=== PATIENT | male | born 1980 ===

== ENCOUNTER 2020-04-22 16:27 | Outpatient (REF) | payer OTHER, SELFPAY | END 2020-04-22 16:28 | disposition home or self-care (01) | LOC: HO.LAB 16:27 | PROVIDERS: PCP Internal Medicine; Visit Provider Internal Medicine | DX: Z20.828 Contact with and (suspected) exposure to other viral communicable diseases (principal) | CPT/HCPCS: 87635 ==

== ENCOUNTER 2020-06-02 16:39 | Outpatient (REF) | payer OTHER, SELFPAY | END 2020-06-02 16:40 | disposition home or self-care (01) | LOC: HO.LAB 16:39 | PROVIDERS: PCP Internal Medicine; Visit Provider Internal Medicine | DX: Z20.828 Contact with and (suspected) exposure to other viral communicable diseases (principal) | CPT/HCPCS: C9803; U0003 ==

== ENCOUNTER 2021-03-23 08:54 | Outpatient (AMB) | payer OTHER, SELFPAY ==
[2021-03-23 08:55] VITALS: BP 130/88; PULSE 70; TEMP 36.6; O2SAT 98; BMI 33.8
--- NOTE | 2021-03-23 08:55 | A.OFFPC_ITS ---
Vital Signs 03/23/21 08:55 Height 5 ft 7 in Weight 216 lb BMI 33.8 BP 130/88 Pulse 70 Pulse Source Pulse Oximeter Temp 97.9 F Pulse Oximetry (%) 98 Oxygen Delivery Method Room Air HPI PE HPI Details Patient comes in today for his annual physical examination States that he feels okay Denies any headaches or dizziness Denies any chest pains, no SOB No nausea/vomiting, no abdominal pain No change in bowel habits noted Denies any acute urinary symptoms PFSH Medical History Benign essential hypertension Pure hypercholesterolemia Vitamin D deficiency Obesity (BMI 30-39.9) Surgical History No history of previous surgery Family History Mother Diabetes Father High blood pressure Social History Housing: Apartment Alcohol intake: unknown Patient Tobacco Use Status: Never used Tobacco e-Cigarette/Vaping Use: Never Used Second Hand Smoke Exposure: Yes service: No Current occupational status: unemployed Cognitive needs: No Hearing needs: No Vision needs: No Questionnaire PHQ-9 Over the last 2 weeks, how often have you been bothered by any of the following problems? 1. Little interest or pleasure in doing things: not at all 2. Feeling down, depressed, or hopeless: not at all 3. Trouble falling or staying asleep, or sleeping too much: not at all 4. Feeling tired or having little energy: not at all 5. Poor appetite or overeating: not at all 6. Feeling bad about yourself - or that you are a failure or have let yourself or your family down: not at all 7. Trouble concentrating on things, such as reading the newspaper or watching television: not at all 8. Moving or speaking so slowly that other people could have noticed. Or the opposite - being so fidgety or restless that you have been moving around a lot more than usual: not at all 9. Thoughts that you would be better off or of hurting yourself in some way: not at all Total score: 0 Depression Screening Interpretation: Negative 09026 - PHQ-9 Billing: Yes Source: Developed by Drs. Pablo Gomez, Ronda Morales, Wyatt Robledo and colleagues, with an educational christopher from [employer]. Thrive Questionnaire Date Thrive assessed: 03/23/21 I am a: Patient What is your living situation today?: I have a steady place to live Within the past 12 months, did the food you bought not last and you didn't have the money to get more?: Never true Within the past 12 months, did you worry whether your food would run out before you got money to buy more?: Never true Do you have trouble paying for medicines?: No Do you have trouble getting transportation to medical appointments?: No Do you have trouble paying your heating and electricity bill?: No Do you have trouble taking care of your child, family member or friend?: No Do you have trouble with day-to-day activities such as bathing, preparing meals, shopping, managing finances, etc.?: No Are you currently unemployed and looking for a job?: No Are you interested in more education?: No Currently or been in a relationship where the following occur: no concerns reported AUDIT C Alcohol Use Questionnaire (AUDIT-C) 1. How often do you have a drink containing alcohol?: Monthly or less 2. How many drinks containing alcohol do you have on a typical day when you are drinking?: 1 or 2 3. How often do you have six or more drinks on one occasion?: Never Total Score: 1 Score Reviewed/Action Taken: Yes GENE-7 AMB Questionnaire GENE-7 Date GENE - 7 assessed: 03/23/21 Feeling nervous, anxious, or on edge: 1 = Several days Not being able to stop or control worryin = Several days Worrying too much about different things: 1 = Several days Trouble relaxin = Several days Being so restless that it is hard to sit still: 1 = Several days Becoming easily annoyed or irritable: 1 = Several days Feeling afraid as if something awful might happen: 1 = Several days Total GENE-7 score (0-4 normal; 5-9 mild; 10-14 moderate; 15-21 severe): 7 Source: Developed by Ronda Carey Kurt Kroenke and colleagues, with an educational christopher from [employer]. Review of Systems Const Denies anorexia, Denies body aches, Denies chills, Denies fatigue, Denies fever(s), Denies headache(s), Denies malaise and Denies weakness Eyes Denies blurry vision, Denies change in vision, Denies irritation, Denies itchy eyes and Denies other visual disturbances ENT Reports Normal hearing present, Denies dysphagia, Denies dizziness, Denies ear discharge, Denies otalgia, Denies headache(s), Denies nasal congestion, Denies neck mass, Denies neck pain, Denies odynophagia, Denies sinus pain, Denies sinus pressure and Denies sore throat Card Denies chest pain at rest, Denies chest pain with activity, Denies rapid heart rate, Denies irregular heart rhythm, Denies palpitations, Denies dyspnea and Denies dyspnea on exertion Resp Denies chest congestion, Denies cough, Denies dyspnea, Denies dyspnea on exertion and Denies wheezing GI Denies abdominal pain, Denies bloating, Denies change in bowel habits, Denies constipation, Denies dysphagia, Denies heartburn, Denies diarrhea, Denies nausea, Denies odynophagia and Denies vomiting Denies hematuria, Denies difficulty urinating, Denies genital pain, Denies dy suria, Denies penile discharge, Denies scrotal swelling, Denies testicular mass, Denies testicular pain, Denies urinary frequency, Denies urinary incontinence and Denies urinary urgency Musc Denies back pain, Denies arthralgias, Denies joint swelling, Denies muscle weakness and Denies neck pain Skin/Breast Denies change in pigmentation, Denies lesions, Denies rash and Denies unusual bruising Neuro Reports Normal hearing present, Denies dizziness, Denies headache(s), Denies paresthesias and Denies weakness Endo Denies fatigue and Denies palpitations Aller/Immun Denies itchy eyes and Denies wheezing Physical exam (Primary Care) Vital Signs: Last Vital Signs Temp 97.9 F 03/23/21 08:55 Pulse 70 03/23/21 08:55 BP 130/88 03/23/21 08:55 Pulse Ox 98 03/23/21 08:55 Oxygen Delivery Method Room Air 03/23/21 08:55 BMI result Body Mass Index 33.8 Tobacco/Smoking Status: Tobacco use Status Tobacco use date assessed 03/23/21 03/23/21 09:04 Patient Tobacco Use Status Never used Tobacco 03/23/21 09:04 PHQ-9: Total score: 0 Depression Screening Interpretation: Negative Const General: no acute distress, alert and awake Orientation/consciousness: patient oriented x3 HENMT Head: Yes normal to inspection, Yes normocephalic and Yes atraumatic Ears: external ears normal, TM's normal bilaterally and EAC's normal General nose exam: Normal external nose present, No nasal polyps present and No nasal discharge present Face and sinus: Yes normal facial exam and Yes sinuses nontender Mouth: Normal oral and palatal mucosa present, tongue normal and oropharynx normal Teeth and gingiva: dentition normal Throat: Yes posterior oropharynx normal and Yes tonsils normal Eyes Eyelids: Yes eyelids normal Conjunctivae: conjunctivae normal Sclerae: sclerae normal Pupils: Equal, round and reactive pupils present EOM: EOMs intact bilaterally Neck Neck: Yes no lymphadenopathy and Yes supple Thyroid: Thyroid normal and no masses Lymphatic: no lymphadenopathy noted Resp Auscultation: clear to auscultation bilaterally, no crackles, no rales and no wheezes Cardio Rate: regular rate Rhythm: regular rhythm Heart sounds: no murmurs GI Palpation (GI): Soft to palpation, nontender, no guarding and No hepatosplenomegaly present Auscultation: normal bowel sounds General: Yes no CVA tenderness Male General Exam: Yes normal external exam Scrotum: testes descended bilaterally, no inguinal hernias, no masses and no scrotal swelling Back/Spine/Pelvis Back: no CVA tenderness Skin Lesions: no lesions Rashes: no rashes Neuro General: patient oriented x3, moves all extremities, no focal motor deficits and CN's II-XI intact bilaterally Cranial nerves: Yes Equal, round and reactive pupils present and Yes Normal hearing present Extrem General: Yes no clubbing, cyanosis or edema Psych Appearance: grossly normal Mental Status: mental status grossly normal Assessment and Plan Assessment & Plan (1) Annual physical exam: Code(s): Z00.00 - Encounter for general adult medical examination without abnormal findings Plan: Check labs (2) Elevated blood pressure reading: Code(s): R03.0 - Elevated blood-pressure reading, without diagnosis of hypertension Plan: Reinforced low sodium diet - goal is systolic BP of at least 120 mm or less Instructed to continue monitoring his BP regularly (3) Pure hypercholesterolemia: Code(s): E78.00 - Pure hypercholesterolemia, unspecified Plan: Reinforced low cholesterol diet Will recheck fasting lipids (4) Vitamin D deficiency: Code(s): E55.9 - Vitamin D deficiency, unspecified Plan: Will recheck Vitamin D level for follow up (5) Obesity (BMI 30-39.9): Code(s): E66.9 - Obesity, unspecified Plan: Reinforced diet/exercise as tolerated/lose weight Plan Follow up in 4 months Orders: Orders Comprehensive [place]. Panel Fast 03/23/21 E78.00 - Pure hypercholesterolemia, uns pecified, Z00.00 - Encounter for general adult medical examination without abnormal findings, R03.0 - Elevated blood-pressure reading, without diagnosis of hypertension Lipid Panel 03/23/21 E78.00 - Pure hypercholesterolemia, unspecified, Z00.00 - Encounter for general adult medical examination without abnormal findings, R03.0 - Elevated blood-pressure reading, without diagnosis of hypertension Vitamin D 25-OH Total 03/23/21 E55.9 - Vitamin D deficiency, unspecified, Z00.00 - Encounter for general adult medical examination without abnormal findings Complete Blood Count Auto Diff 03/23/21 Z00.00 - Encounter for general adult medical examination without abnormal findings, R03.0 - Elevated blood-pressure reading, without diagnosis of hypertension TSH reflex Free T4 03/23/21 E78.00 - Pure hypercholesterolemia, unspecified, Z00.00 - Encounter for general adult medical examination without abnormal findings, R03.0 - Elevated blood-pressure reading, without diagnosis of hypertension, E66.9 - Obesity, unspecified UA CC w/rflx Micro + Cult 03/23/21 Z00.00 - Encounter for general adult medical examination without abnormal findings, R03.0 - Elevated blood-pressure reading, without diagnosis of hypertension Coding Level of Care Code Est Pt Prev Care 40-64y(86157) Diagnoses Annual physical exam Z00.00 Elevated blood pressure reading R03.0 Pure hypercholesterolemia E78.00 Vitamin D deficiency E55.9 Obesity (BMI 30-39.9) E66.9 Additional Codes PHQ-9 - 15800 - PHQ-9 Billing: Yes ([id number])
== END 2021-03-23 09:38 | disposition home or self-care (01) ==
LOC: HO.HMGH 08:54
PROVIDERS: PCP Internal Medicine; Visit Provider Internal Medicine
DX: Z00.00 Encounter for general adult medical examination without abnormal findings (principal); R03.0 Elevated blood-pressure reading, without diagnosis of hypertension; E78.00 Pure hypercholesterolemia, unspecified; E55.9 Vitamin D deficiency, unspecified; E66.9 Obesity, unspecified
CPT/HCPCS: 99396

== ENCOUNTER 2021-09-08 07:49 | Outpatient (REF) | payer OTHER, SELFPAY ==
--- NOTE | ~2021-09-08 | CT_ITS ---
EXAMINATION: CT ABDOMEN AND PELVIS WITH CONTRAST CLINICAL INFORMATION: Hernia without obstruction COMPARISON: None TECHNIQUE: Multidetector volumetric images were obtained from the superior aspect of the liver through the pubic symphysis following administration 85 mL of Omnipaque 350 intravenous contrast. Sagittal and coronal reformatted images were obtained on the technologist's workstation. Oral contrast: Yes This CT examination was performed using dose optimization techniques as appropriate, variously including the following: *Automated exposure control *Adjustment of mA and/or kV according to patient size (this includes techniques or standardized protocols for targeted exams where dose is matched to indication/reason for exam; i.e. extremities or head) *Use of iterative reconstruction technique DLP: 579 mGy-cm FINDINGS: LUNG BASES: The visualized lung bases are unremarkable. LIVER, GALLBLADDER, AND BILIARY TREE: The liver is normal in size, shape, and attenuation. No focal hepatic lesion or biliary ductal dilatation is present. The gallbladder is unremarkable with no evidence of radiopaque gallstones, gallbladder wall thickening, or obvious pericholecystic inflammatory changes. PANCREAS: Unremarkable. SPLEEN: Unremarkable. ADRENAL GLANDS: Unremarkable. KIDNEYS AND URETERS: The kidneys are normal in size, shape, and attenuation. No hydronephrosis, hydroureter, or calculi seen. No perinephric stranding. BLADDER: Unremarkable. GASTROINTESTINAL TRACT: The small and large bowel are unremarkable. The appendix is unremarkable. ABDOMINAL WALL: There is a small umbilical hernia containing fat. There may be a small left inguinal hernia containing fat. LYMPH NODES: Normal. VASCULAR: Unremarkable. PELVIC VISCERA: Unremarkable. OSSEOUS STRUCTURES: Unremarkable. CT/CT abdomen pelvis w con IMPRESSION: Small umbilical hernia containing fat and question small left inguinal hernia containing fat. Fleischner guidelines were followed.
[2021-09-08] MEDS: iohexoL 350 MG/ML 100 ML INFUS..BTL IV (11:03)
[2021-09-08] MEDS: Barium Sulfate Oral (Vanilla) 450 ML ORAL.SUSP 900 ML PO (11:03)
== END 2021-09-08 07:50 | disposition home or self-care (01) ==
LOC: HO.CT 07:49
PROVIDERS: PCP Internal Medicine; Visit Provider Nurse Practitioner Acute Care
DX: K46.9 Unspecified abdominal hernia without obstruction or gangrene (principal)
CPT/HCPCS: 74177; Q9967

== ENCOUNTER → 2021-10-02 09:32 | Outpatient (BNVA) | payer OTHER, SELFPAY | PROVIDERS: PCP Internal Medicine; Referring Provider Nurse Practitioner Acute Care; Visit Provider Surgery | DX: M62.08 Separation of muscle (nontraumatic), other site (principal); K42.9 Umbilical hernia without obstruction or gangrene | CPT/HCPCS: 99202 ==

== ENCOUNTER 2022-03-26 11:46 | Outpatient (REF) | payer OTHER, SELFPAY ==
[2022-03-26 12:05] LABS: MANUAL DIFF FLAG NO
[2022-03-26 13:15] LABS: Alanine Aminotransferase 18 U/L (0-40); Albumin Level 4.3 g/dL (3.5-5.0); Alkaline Phosphatase 78 U/L (39-117); Anion Gap 13 (12-20); Aspartate Amino Transferase 18 U/L (5-37); Blood Urea Nitrogen 9 mg/dL (9-16); Calcium 9.4 mg/dL (8.4-10.2); Carbon Dioxide 29 mmol/L (22-29); Chloride 103 mmol/L (96-108); Cholesterol 212 mg/dL; Estimated Glomerular Filt Rate > 60; Glucose Fasting 86 mg/dL (60-99); HDL Cholesterol 36 mg/dL; LDL Cholesterol Calculated 154 mg/dl; Potassium 4.5 mmol/L (3.3-5.1); Sodium 140 mmol/L (135-145); Total Protein 7.2 g/dL (6.5-8.0); Triglycerides 110 mg/dL
[2022-03-26 13:17] LABS: Basophils Percent Auto 0.3 % (0-2); Eosinophils Absolute Auto 0.1 X10*3/uL (0.0-0.4); Eosinophils Percent Auto 1.2 % (0-4); Hematocrit 43.5 % (42.0-52.0); Hemoglobin 15.2 g/dl (14.0-18.0); Imm Gran Abs Auto 0.03 X10*3/uL (0.00-0.03); Imm Gran Pct Auto 0.5 % (0.0-0.4); Lymphocytes Absolute Auto 1.5 X10*3/uL (1.2-4.9); Lymphocytes Percent Auto 22.7 % (20-40); Mean Corpuscular HGB Conc 34.9 g/dl (31.0-36.0); Mean Corpuscular Hemoglobin 30.6 pg (27.0-33.0); Mean Corpuscular Volume 87.7 fL (80.0-98.0); Mean Platelet Volume 11.5 fL (9.4-12.4); Monocytes Absolute Auto 0.6 X10*3/uL (0.1-1.2); Monocytes Percent Auto 8.9 % (2-11); Neutrophils Absolute Auto 4.4 x10*3/uL (2.0-8.3); Neutrophils Percent Auto 66.4 % (45-73); Platelet Count 226 X10*3/uL (160-400); Red Blood Count 4.96 X10*6/uL (4.60-5.80); Red Cell Distribution Width 12.7 % (11.0-16.0); White Blood Count 6.7 X10*3/uL (4.8-10.8)
[2022-03-26 13:35] LABS: Prostate Specific Antigen 1.41 ng/mL (<0.05-4.0); TSH reflex Free T4 1.46 uIU/mL (0.32-4.0); Vitamin D 25-OH Total 12.8 ng/mL (>30)
[2022-03-26 13:59] LABS: Appearance Urine Clear; Color Urine Yellow; Glucose Urine UA Negative (Negative); Leukocyte Esterase Urine Negative (Negative); Nitrite Urine Negative (Negative); Urine Blood Negative (Negative); Urine Ketones Negative (Negative); Urine Protein Negative (Neg-Trace)
== END 2022-03-26 11:47 | disposition home or self-care (01) ==
LOC: HO.LAB 11:46
PROVIDERS: PCP Internal Medicine; Visit Provider Internal Medicine
DX: Z00.00 Encounter for general adult medical examination without abnormal findings (principal); Z12.5 Encounter for screening for malignant neoplasm of prostate; R35.0 Frequency of micturition; E55.9 Vitamin D deficiency, unspecified; E78.00 Pure hypercholesterolemia, unspecified; I10 Essential (primary) hypertension
CPT/HCPCS: 36415; 80053; 80061; 81003; 82306; 84153; 84443; 85025

== ENCOUNTER 2022-09-29 07:25 | Outpatient (REF) | payer OTHER, SELFPAY ==
[2022-09-29 07:41] LABS: MANUAL DIFF FLAG NO
[2022-09-29 08:38] LABS: Basophils Percent Auto 0.5 % (0-2); Eosinophils Absolute Auto 0.1 X10*3/uL (0.0-0.4); Eosinophils Percent Auto 2.1 % (0-4); Hematocrit 44.2 % (42.0-52.0); Hemoglobin 15.3 g/dl (14.0-18.0); Imm Gran Abs Auto 0.03 X10*3/uL (0.00-0.03); Imm Gran Pct Auto 0.5 % (0.0-0.4); Lymphocytes Absolute Auto 1.7 X10*3/uL (1.2-4.9); Lymphocytes Percent Auto 25.4 % (20-40); Mean Corpuscular HGB Conc 34.6 g/dl (31.0-36.0); Mean Corpuscular Hemoglobin 30.1 pg (27.0-33.0); Mean Platelet Volume 11.4 fL (9.4-12.4); Monocytes Absolute Auto 0.6 X10*3/uL (0.1-1.2); Neutrophils Absolute Auto 4.2 x10*3/uL (2.0-8.3); Neutrophils Percent Auto 62.5 % (45-73); Platelet Count 230 X10*3/uL (160-400); Red Blood Count 5.08 X10*6/uL (4.60-5.80); Red Cell Distribution Width 12.7 % (11.0-16.0); White Blood Count 6.7 X10*3/uL (4.8-10.8)
[2022-09-29 09:25] LABS: Alanine Aminotransferase 14 U/L (0-40); Albumin Level 4.3 g/dL (3.5-5.0); Alkaline Phosphatase 78 U/L (39-117); Anion Gap 13 (12-20); Aspartate Amino Transferase 19 U/L (5-37); Bilirubin Total 1.7 mg/dL (0.0-1.0); Blood Urea Nitrogen 11 mg/dL (9-16); Calcium 9.6 mg/dL (8.4-10.2); Carbon Dioxide 30 mmol/L (22-29); Chloride 106 mmol/L (96-108); Cholesterol 217 mg/dL; Estimated Glomerular Filt Rate > 60; Glucose Fasting 89 mg/dL (60-99); HDL Cholesterol 40 mg/dL; LDL Cholesterol Calculated 159 mg/dl; Potassium 4.8 mmol/L (3.3-5.1); Sodium 144 mmol/L (135-145); Triglycerides 91 mg/dL
[2022-09-29 09:41] LABS: TSH reflex Free T4 1.36 uIU/mL (0.32-4.0); Vitamin D 25-OH Total 11.5 ng/mL (>30)
[2022-09-29 09:51] LABS: Appearance Urine Clear; Color Urine Yellow; Glucose Urine UA Negative (Negative); Leukocyte Esterase Urine Negative (Negative); Nitrite Urine Negative (Negative); Specific Gravity - Urine 1.015 (1.005-1.025); Urine Blood Negative (Negative); Urine Ketones Negative (Negative); Urine Protein Negative (Neg-Trace)
== END 2022-09-29 07:26 | disposition home or self-care (01) ==
LOC: HO.LAB 07:25
PROVIDERS: PCP Internal Medicine; Visit Provider Internal Medicine
DX: R30.0 Dysuria (principal); E55.9 Vitamin D deficiency, unspecified; E78.00 Pure hypercholesterolemia, unspecified; I10 Essential (primary) hypertension
CPT/HCPCS: 36415; 80053; 80061; 81003; 82306; 84443; 85025

== ENCOUNTER 2022-11-17 23:59 | Emergency (ER) | payer OTHER, SELFPAY ==
--- NOTE | ~2022-11-17 | XR_ITS ---
EXAMINATION: XR FINGER, RIGHT CLINICAL INFORMATION: Right index finger pain and injury COMPARISON: None available. TECHNIQUE: 3 views of the right index finger. FINDINGS: The bones and soft tissues are normal. No fracture. Alignment is anatomic. Joint spaces are maintained. XR/XR finger RT min 2V IMPRESSION: Normal finger radiographs.
[2022-11-18 00:06] VITALS: BP 189/112; PULSE 67; RESP 17; TEMP 36.8; O2SAT 96; BMI 31.3
--- NOTE | 2022-11-18 02:00 | ED.EXTPRO ---
HPI - Extremity Problem General Chief complaint: Extremity Injury, Upper Stated complaint: finger inj Time Seen by Provider: 11/18/22 00:24 Source: patient Mode of arrival: ambulatory Limitations: no limitations History of Present Illness HPI Narrative: 42-year-old male [id number] came in with swelling and pain to all the tip of the right index, no known trauma or injury to the finger. Patient has no fever or chills. Related Data Previous Rx's Medication Instructions Recorded lisinopril 5 mg tablet 5 mg PO DAILY 90 days #90 tabs 09/23/22 atorvastatin 10 mg tablet 10 mg PO BEDTIME 30 days #30 tabs 09/29/22 cholecalciferol (vitamin D3) 50 50 mcg PO DAILY 90 days #90 caps 09/29/22 mcg (2,000 unit) capsule blood pressure monitor (Blood #1 ea 10/06/22 Pressure Kit) doxycycline hyclate 100 mg tablet 100 mg PO BID #20 tabs 11/18/22 Allergies Allergy/AdvReac Type Severity Reaction Status Date / Time No Known Allergies Allergy Verified 11/18/22 00:08 [No Known Allergies*] Review of Systems Review of Systems: All other systems are reviewed and are negative Constitutional: Reports as per HPI and Reports no additional constitutional complaints Eyes: Reports as per HPI and Reports no additional eye complaints Reports system reviewed and no additional complaints, except as documented Cardiovascular: Reports as per HPI and Reports no additional cardiovascular complaints Respiratory: Reports as per HPI and Reports no additional respiratory complaints Gastrointestinal: Reports as per HPI and Reports no additional gastrointestinal complaints Genitourinary: Reports no additional female genitourinary complaints Musculoskeletal: Reports no additional musculoskeletal complaints Skin/Breast: Reports system reviewed and no additional complaints, except as docu Psychiatric: Reports no additional psychiatric complaints Endocrine: Reports no additional endocrine complaints Hematologic/Lymphatic: Reports no additional hematologic/lymphatic complaints Allergic/Immunologic: Reports no additional allergic/immunologic complaints Reports system reviewed and no additional complaints, except as documented and Reports Abnormal speech present [facility] Past Medical History Medical History Benign essential hypertension Obesity (BMI 30-39.9) Pure hypercholesterolemia Vitamin D deficiency Surgical History No history of previous surgery Family History Family History Mother Diabetes Father High blood pressure Social History Social History Housing: Apartment Alcohol intake: current Alcohol intake frequency: holidays/special occasions only Patient Tobacco Use Status: Never used Tobacco e-Cigarette/Vaping Use: Never Used Second Hand Smoke Exposure: Yes Advance Directives: No Advance Directives Information Provided: Yes service: No Current occupational status: unemployed Cognitive needs: No Hearing needs: No Vision needs: No Physical Exam Vital Signs: Vital Signs: Last Vital Signs Temp 98.2 F 11/18/22 00:06 Pulse 67 11/18/22 00:06 Resp 17 11/18/22 00:06 BP 189/112 H 11/18/22 00:06 Pulse Ox 96 11/18/22 00:06 O2 Del Method Room Air 11/18/22 00:06 BMI result Body Mass Index 31.3 Vital signs have been reviewed as appeared to be correct. Blood pressure elevated. Heart rate normal. Respiration rate normal. Temperature normal. Oxygen saturation normal. Appearance: Alert. Oriented X3. No acute distress. Head: Normal external exam. Normocephalic. Atraumatic. No Borden signs noted. No raccoon eyes noted Eyes: PERRLA. EOMI. Conjunctiva and sclera normal. Eyelids normal. ENT: TM's Normal. Pharynx normal. Uvula midline. Moist mucous membranes. No trismus noted. No drooling noted. No muffled voice noted. Neck: Normal inspection. Neck supple. FROM. No adenopathy. Thyroid Normal. No meningeal signs. No neck mass noted. CVS: Normal heart rate and rhythm. Heart sound normal. No murmurs noted. Pulses normal throughout. Respiratory: No respiratory distress. Painless inspiration. Breath sounds normal. No wheezes/rales/rhonchi noted. Chest nontender. No accessory muscle usage noted or decreased air movement noted. Abdomen: Soft and nontender. Bowel sounds normal in all 4 quadrants. No distention noted. No organomegaly noted. No visible injury noted. Back: No CVA tenderness. Full range of motion noted. Skin: Skin warm and dry. Normal skin color. Normal skin turgor. No rashes/lesions/lacerations noted. Extremities: Right index finger diffuse redness to the distal right index with paronychia and swelling at the nail bed of the right index finger, extending the redness to the palmar surface but no discrete fluctuation. Neuro: Oriented X 3. Cranial nerve exam: II-XII are grossly intact No motor deficit. No sensory deficit. Reflexes normal. Course Course Course Narrative: Right index paronychia will start the patient on doxycycline and finger soaking and return in 2 days for recheck. Medical Decision Making Differential Diagnosis Differential Diagnoses: The differential diagnosis associated with the presentation includes (Right index paronychia, felon, osteomyelitis, injury and fracture.) Discharge Plan Discharge Clinical Impression: Paronychia of right index finger Patient Disposition: Home, Self-Care Instructions: Paronychia (ED) Additional Instructions: Come back in 2 days for finger check, continue with his finger soaking in warm water, take the antibiotic as prescribed. Prescriptions: New doxycycline hyclate 100 mg tablet 100 mg PO BID Qty: 20 0RF No Action lisinopril 5 mg tablet 5 mg PO DAILY 90 Days Qty: 90 1RF (DME) blood pressure monitor [Blood Pressure Kit] Kit See Rx Instructions .Route Qty: 1 0RF Rx Instructions: As directed atorvastatin 10 mg tablet 10 mg PO BEDTIME 30 Days Qty: 30 3RF cholecalciferol (vitamin D3) 50 mcg (2,000 unit) capsule 50 mcg PO DAILY 90 Days Qty: 90 3RF Referrals: Physician,Unknown J [Primary Care Provider] - Stand Alone Forms: Work/School Release
[2022-11-18] MEDS: Doxycycline Monohydrate 100 MG CAPSULE PO (02:56)
[2022-11-18] MEDS: Lidocaine HCl 1 % MPF 5 ML VIAL SUBCUT (02:56)
== END 2022-11-18 03:25 | disposition home or self-care (01) ==
PROVIDERS: Emergency Provider Emergency Medicine
DX: L03.011 Cellulitis of right finger (principal); M79.644 Pain in right finger(s); Z79.899 Other long term (current) drug therapy
CPT/HCPCS: 73140; 99283

== ENCOUNTER 2022-11-19 08:32 | Emergency (ER) | payer OTHER, SELFPAY ==
[2022-11-19 08:41] VITALS: BP 160/98; PULSE 60; RESP 16; TEMP 36.7; O2SAT 96; BMI 31.3
--- NOTE | 2022-11-19 08:48 | ED.WOUNDLAC ---
HPI - Wound/Laceration General Chief Complaint: Extremity Problem Stated Complaint: finger infection follow up? Time Seen by Provider: 11/19/22 08:46 Source: patient Mode of arrival: ambulatory Limitations: no limitations History of Present Illness HPI narrative: 42-year-old male seen here 2 days ago for a paronychia of the right index finger presents back to the ER for re-evaluation of the infection. He was sent home with doxycycline and has been using warm soaks. He states the pain is improved. It is still red but no longer draining. He states there is pressure when he flexes the DIP. No fever or chills. Onset (ago): day(s) Extremity Location: right: hand (index finger) Place: home Patient tetanus UTD: Yes Context: accidental Treatments prior to arrival: other (abx, warm soaks) Related Data Previous Rx's Medication Instructions Recorded lisinopril 5 mg tablet 5 mg PO DAILY 90 days #90 tabs 09/23/22 atorvastatin 10 mg tablet 10 mg PO BEDTIME 30 days #30 tabs 09/29/22 cholecalciferol (vitamin D3) 50 50 mcg PO DAILY 90 days #90 caps 09/29/22 mcg (2,000 unit) capsule blood pressure monitor (Blood #1 ea 10/06/22 Pressure Kit) doxycycline hyclate 100 mg tablet 100 mg PO BID #20 tabs 11/18/22 cephalexin 500 mg capsule 500 mg PO Q6H 7 days #28 caps 11/19/22 Allergies Allergy/AdvReac Type Severity Reaction Status Date / Time No Known Allergies Allergy Verified 11/18/22 00:08 [No Known Allergies*] Review of Systems Review of Systems: Yes all other systems are reviewed and are negative PMFSH Past Medical History Medical History Benign essential hypertension Obesity (BMI 30-39.9) Pure hypercholesterolemia Vitamin D deficiency Surgical History No history of previous surgery Family History Family History Mother Diabetes Father High blood pressure Social History Social History Housing: Apartment Alcohol intake: unknown Patient Tobacco Use Status: Never used Tobacco e-Cigarette/Vaping Use: Never Used Second Hand Smoke Exposure: Yes Advance Directives: No service: No Current occupational status: unemployed Cognitive needs: No Hearing needs: No Vision needs: No Physical Exam Vital Signs: Vital Signs: Last Vital Signs Temp 98.1 F 11/19/22 08:41 Pulse 60 11/19/22 08:41 Resp 16 11/19/22 08:41 BP 160/98 H 11/19/22 08:41 Pulse Ox 96 11/19/22 08:41 O2 Del Method Room Air 11/19/22 08:41 BMI result Body Mass Index 31.3 Appearance: Alert. Oriented X3. No acute distress. HEENT: normal inspection CVS: Normal heart rate and rhythm. Pulses normal. Respiratory: No respiratory distress. Skin: Skin warm and dry. Normal skin color. Normal skin turgor. No rashes. Extremities: distal portion of the right index finger with erythema, nontender, mild fluctuance at the base of the nail bed. FROM of the digit. Neuro: Oriented X 3. No motor deficit. No sensory deficit. Medical Decision Making Medical Decision Making MDM Narrative: 42 yo male presenting for re-evaluation of paronychia. Seen 2 days prior and has been on doxycycline. Appears to be healing appropriate. Still has erythema but no tenderness. no area to I&D today. will add keflex to regimen. stable for d/c home Differential Diagnosis Differential Diagnoses: The differential diagnosis associated with the presentation includes paronychia, tenosynovitis, cellulitis Radiology Impression Discussion of test interpretation with radiology: I have reviewed the radiologist's reading. Radiologist Impression: Ordering Physician: Good Freire MD Date of Service: 11/18/22 Procedure(s): XR finger RT min 2V Accession Number(s): [id number] cc: Good Freire MD~ EXAMINATION: XR FINGER, RIGHT CLINICAL INFORMATION: Right index finger pain and injury? COMPARISON: None available.? TECHNIQUE: 3 views of the right index finger. FINDINGS: The bones and soft tissues are normal. No fracture. Alignment is anatomic. Joint spaces are maintained.? XR/XR finger RT min 2V IMPRESSION: Normal finger radiographs. External Record Review External record reviewed: Outpatient record, Prior outpatient labs and Prior outpatient radiology Prescription Management I considered prescription management with: Antibiotic Critical Care Time Critical Care Time Critical Care Time: No Discharge Plan Discharge Clinical Impression: Paronychia of finger Patient Disposition: Home, Self-Care Instructions: Paronychia (ED) Additional Instructions: Your finger appears to be healing well. Finish the previously prescribed antibiotic as directed and start taking the new antibiotic as well. Continue with soaks with warm soapy water. If you develop new or worsening symptoms call 911 or come back to the ER for further evaluation. Prescriptions: New cephalexin 500 mg capsule 500 mg PO Q6H 7 Days Qty: 28 0RF No Action lisinopril 5 mg tablet 5 mg PO DAILY 90 Days Qty: 90 1RF (DME) blood pressure monitor [Blood Pressure Kit] Kit See Rx Instructions .Route Qty: 1 0RF Rx Instructions: As directed doxycycline hyclate 100 mg tablet 100 mg PO BID Qty: 20 0RF atorvastatin 10 mg tablet 10 mg PO BEDTIME 30 Days Qty: 30 3RF cholecalciferol (vitamin D3) 50 mcg (2,000 unit) capsule 50 mcg PO DAILY 90 Days Qty: 90 3RF Interventions: ED Discharge Assessment Last Done: 11/19/22 09:00 Discharge Date/Time: 11/19/22 09:00
--- NOTE | 2022-11-19 08:58 | PC.NURSE ---
Pt returned to hospial per Jasvir. Provider [place], new antx added to regimen. he is a/ox3, denies any new pain. No new redness or puss noted.
== END 2022-11-19 09:00 | disposition home or self-care (01) ==
PROVIDERS: Emergency Provider Emergency Medicine; PCP Internal Medicine
DX: L03.011 Cellulitis of right finger (principal); Z79.02 Long term (current) use of antithrombotics/antiplatelets; Z79.899 Other long term (current) drug therapy
CPT/HCPCS: 99282; 99283

== ENCOUNTER 2022-12-29 14:30 | Outpatient (AMB) | payer OTHER, SELFPAY ==
--- NOTE | 2022-12-29 14:56 | A.OFFPC_ITS ---
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 Accompanied by: Self / Same As Patient Allergies No Known Allergies [No Known Allergies*] Allergy (Verified 03/29/23 13:10) Medication List - Last Reconciled 12/29/22 by Jann Triplett MD atorvastatin 10 mg PO BEDTIME 30 days blood pressure monitor (Blood Pressure Kit) As directed cholecalciferol (vitamin D3) 50 mcg PO DAILY 90 days doxycycline hyclate 100 mg PO BID lisinopril 5 mg PO DAILY 90 days Tobacco use date assessed: 12/29/22 Dental Screening Dental Screen Date: 12/29/22 Did you have a dental visit in the last 12 months?: Yes Did you have a dental problem in the last 6 months where you did not have access to dental care?: No Was dental information given to patient?: Patient has dentist HPI HTN, hyperlipidemia, vitamin D deficiency HPI Details Patient comes in today for his follow up visit States that he feels okay States that he still has occasional headaches and dizziness and that 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; states that these symptoms would then gradually subside He denies any chest pains, no SOB No nausea/vomiting, no abdominal pain No change in bowel habits noted Was not able to get his follow up labs done prior to his visit today [facility] Medical History Benign essential hypertension Pure hypercholesterolemia Vitamin D deficiency Obesity (BMI 30-39.9) Surgical History No history of previous surgery Family History Mother Diabetes Father High blood pressure Social History Housing: Apartment Alcohol intake: unknown Patient Tobacco Use Status: Never used Tobacco e-Cigarette/Vaping Use: Never Used Second Hand Smoke Exposure: Yes service: No Current occupational status: unemployed Cognitive needs: No Hearing needs: No Vision needs: No Questionnaire PHQ-9 Over the last 2 weeks, how often have you been bothered by any of the following problems? 1. Little interest or pleasure in doing things: not at all 2. Feeling down, depressed, or hopeless: not at all 3. Trouble falling or staying asleep, or sleeping too much: not at all 4. Feeling tired or having little energy: not at all 5. Poor appetite or overeating: not at all 6. Feeling bad about yourself - or that you are a failure or have let yourself or your family down: not at all 7. Trouble concentrating on things, such as reading the newspaper or watching television: not at all 8. Moving or speaking so slowly that other people could have noticed. Or the opposite - being so fidgety or restless that you have been moving around a lot more than usual: not at all 9. Thoughts that you would be better off or of hurting yourself in some way: not at all Total score: 0 Depression Screening Interpretation: Negative 63201 - PHQ-9 Billing: Yes Source: Developed by Drs. Pablo Gomez, Ronda Morales, Wyatt Robledo and colleagues, with an educational christopher from [employer]. Thrive Questionnaire Date Thrive assessed: 12/29/22 I am a: Patient What is your living situation today?: I have a steady place to live Within the past 12 months, did the food you bought not last and you didn't have the money to get more?: Never true Within the past 12 months, did you worry whether your food would run out before you got money to buy more?: Never true Do you have trouble paying for medicines?: No Do you have trouble getting transportation to medical appointments?: No Do you have trouble paying your heating and electricity bill?: No Do you have trouble taking care of your child, family member or friend?: No Do you have trouble with day-to-day activities such as bathing, preparing meals, shopping, managing finances, etc.?: No Are you currently unemployed and looking for a job?: No Are you interested in more education?: No Currently or been in a relationship where the following occur: no concerns reported AUDIT C Alcohol Use Questionnaire (AUDIT-C) 1. How often do you have a drink containing alcohol?: Monthly or less 2. How many drinks containing alcohol do you have on a typical day when you are drinking?: 1 or 2 3. How often do you have six or more drinks on one occasion?: Never Total Score: 1 Score Reviewed/Action Taken: Yes GENE-7 AMB Questionnaire GENE-7 Date GENE - 7 assessed: 12/29/22 Feeling nervous, anxious, or on edge: 1 = Several days Not being able to stop or control worryin = Several days Worrying too much about different things: 1 = Several days Trouble relaxin = Not at all Being so restless that it is hard to sit still: 0 = Not at all Becoming easily annoyed or irritable: 0 = Not at all Feeling afraid as if something awful might happen: 0 = Not at all Total GENE-7 score (0-4 normal; 5-9 mild; 10-14 moderate; 15-21 severe): 3 Source: Developed by Drs. Pablo Gomez, Ronda Morales, Wyatt Robledo and colleagues, with an educational christopher from [employer]. Review of Systems Const Denies chills, Denies fatigue, Denies fever(s) and Reports headache(s) (occasional - often occurring in the morning when he wakes up) ENT Denies dysphagia, Reports dizziness (occasionally in the morning when he gets up too quickly), Denies otalgia, Reports headache(s) (occasional - often occurring in the morning when he wakes up), Denies neck pain, Denies odynophagia and Denies sore throat Card Denies chest pain, Denies palpitations and Denies dyspnea Resp Denies cough and Denies dyspnea GI Denies abdominal pain, Denies constipation, Denies dysphagia, Denies heartburn, Denies diarrhea, Denies nausea, Denies odynophagia and Denies vomiting Denies dysuria, Denies nocturia and Denies urinary frequency Musc Denies neck pain Neuro Reports dizziness (occasionally in the morning when he gets up too quickly) and Reports headache(s) (occasional - often occurring in the morning when he wakes up) Endo Denies fatigue and Denies palpitations Physical exam (Primary Care) Vital Signs: Last Vital Signs Pulse 80 12/29/22 14:57 BP 152/100 H 12/29/22 14:57 Pulse Ox 98 12/29/22 14:57 Oxygen Delivery Method Room Air 12/29/22 14:57 BMI result Body Mass Index 30.4 Tobacco/Smoking Status: Tobacco use Status Tobacco use date assessed 12/29/22 12/29/22 15:06 Patient Tobacco Use Status Never used Tobacco 12/29/22 14:59 e-Cigarette/Vaping Use Never Used 12/29/22 14:59 PHQ-9: PHQ-9 Score PHQ-9: Total score 0 12/29/22 15:30 Depression Screening Interpretation: Negative Thrive Assessment: Date of Thrive Assessment Date Thrive assessed 12/29/22 12/29/22 15:06 Currently or been in a relationship where the following occur: no concerns reported Const General: no acute distress and alert HENMT Ears: TM's normal bilaterally and EAC's normal Throat: Yes posterior oropharynx normal and Yes tonsils normal (no TP congestion) Neck Neck: Yes no lymphadenopathy and Yes supple Resp Auscultation: clear to auscultation bilaterally, no rales and no wheezes Cardio Rate: regular rate Rhythm: regular rhythm Heart sounds: no murmurs GI Palpation (GI): Soft to palpation, nontender and No hepatosplenomegaly present Skin General skin exam: no rashes or lesions noted Extrem General: Yes no clubbing, cyanosis or edema Assessment and Plan Assessment & Plan (1) Benign essential hypertension: Code(s): I10 - Essential (primary) hypertension Plan: Reinforced low sodium diet - goal is systolic BP of at least 120 to 130 mm or less Continue Lisinopril 5 mg QD for now Patient is instructed to check his blood pressure regularly and especially when he experiences either headaches or dizziness in the morning, as previously mentioned in the HPI Have advised that his BP readings during these episodes will then guide us on what to do - whether to increase his Lisinopril dose or stay on the same dose (2) Pure hypercholesterolemia: Code(s): E78.00 - Pure hypercholesterolemia, unspecified Plan: He is reminded that his cholesterol levels were increased/high on his previous labs Reinforced low cholesterol diet Continue Atorvastatin 10 mg QD Will recheck his fasting lipids and labs in 4 months for follow up (3) Vitamin D deficiency: Code(s): E55.9 - Vitamin D deficiency, unspecified Plan: Continue Vitamin D3 2000 units QD Will recheck his Vitamin D level in 3 months for follow up (4) Urinary frequency: Code(s): R35.0 - Frequency of micturition Plan: His PSA and urinalysis on his recent labs are normal If his urinary symptoms persist, will consider starting him on some alpha- blockers to help with his symptoms (5) Obesity (BMI 30-39.9): Code(s): E66.9 - Obesity, unspecified Plan: Reinforced diet/exercise as tolerated/lose weight Plan Follow up in 4 months Orders: Orders Comprehensive [place]. Panel Fast 4 Months E78.00 - Pure hypercholesterolemia, unspecified Lipid Panel 4 Months E78.00 - Pure hypercholesterolemia, unspecified Coding Level of Care Code Est Pt Level 3 (65205) Diagnoses Benign essential hypertension I10 Pure hypercholesterolemia E78.00 Vitamin D deficiency E55.9 Urinary frequency R35.0 Obesity (BMI 30-39.9) E66.9
[2022-12-29 14:57] VITALS: BP 152/100; PULSE 80; O2SAT 98; BMI 30.4
== END 2022-12-29 15:30 | disposition home or self-care (01) ==
PROVIDERS: PCP Internal Medicine; Visit Provider Internal Medicine
DX: I10 Essential (primary) hypertension (principal); E55.9 Vitamin D deficiency, unspecified; E66.9 Obesity, unspecified; Z68.30 Body mass index [BMI] 30.0-30.9, adult; R35.0 Frequency of micturition; E78.00 Pure hypercholesterolemia, unspecified
CPT/HCPCS: 99213

== ENCOUNTER 2023-02-02 07:17 | Emergency (ER) | payer OTHER, SELFPAY ==
--- NOTE | ~2023-02-02 | XR_ITS ---
EXAMINATION: XR CHEST CLINICAL INFORMATION: Bradycardia. COMPARISON: Chest radiographs dated 07/16/2016. TECHNIQUE: Frontal view of the chest was obtained. FINDINGS: No significant abnormality is noted involving the heart, lungs, mediastinum, bony thorax or soft tissues. XR/XR chest 1V IMPRESSION: No acute cardiopulmonary process.
--- NOTE | 2023-02-02 07:29 | ECG_ITS ---
Test Reason : HIGH BP Blood Pressure : / mmHG Vent. Rate : 064 BPM Atrial Rate : 064 BPM P-R Int : 146 ms QRS Dur : 094 ms QT Int : 396 ms P-R-T Axes : 038 -02 000 degrees QTc Int : 408 ms Normal sinus rhythm Minimal voltage criteria for LVH, may be normal variant ( R in aVL ) Borderline ECG No previous ECGs available Referred By: Prashant Ramirez Electronically Signed By:CEE BRYANT MD
[2023-02-02 07:31] VITALS: BP 174/103; PULSE 66; RESP 14; TEMP 36.6; O2SAT 98; BMI 30.7
--- NOTE | 2023-02-02 07:48 | ED.GENADULT ---
HPI - General Adult General Chief complaint: General Medical Stated complaint: high blood pressure Time Seen by Provider: 02/02/23 07:24 Source: patient Mode of arrival: ambulatory Limitations: no limitations History of Present Illness HPI narrative: Patient is a 42-year-old male with history of hypertension, hypercholesterolemia presenting to the emergency department with elevated blood pressure readings at home for the past week. States he checks blood pressure daily with automatic wrist cuff and at times systolic BP has been elevated to 150-160, this week was as high as 170-180. Called PCP and PCP doubled lisinopril dose to 10 mg on Tuesday but BPs have remained elevated. 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 States has not seen an technical services assistant in many years. Denies headaches. Denies chest pain. Denies abdominal pain, nausea, vomiting. complaint: elevated BP Onset (ago): day(s) Location: chest Radiation: non-radiation Relieving factors: rest Exacerbating factors: movement Associated symptoms: shortness of breath Treatments prior to arrival: other (doubled lisinopril per PCP on Tuesday) Related Data Previous Rx's Medication Instructions Recorded cholecalciferol (vitamin D3) 50 50 mcg PO DAILY 90 days #90 caps 09/29/22 mcg (2,000 unit) capsule blood pressure monitor (Blood #1 ea 10/06/22 Pressure Kit) doxycycline hyclate 100 mg tablet 100 mg PO BID #20 tabs 11/18/22 atorvastatin 10 mg tablet 10 mg PO BEDTIME 30 days #30 tabs 12/07/22 lisinopril 10 mg tablet 10 mg PO DAILY 90 days #90 tabs 01/31/23 hydrochlorothiazide 12.5 mg tablet 12.5 mg PO DAILY #14 tabs 02/02/23 Allergies Allergy/AdvReac Type Severity Reaction Status Date / Time No Known Allergies Allergy Verified 12/29/22 15:25 [No Known Allergies*] Review of Systems Review of Systems: As per HPI. Yes all other systems are reviewed and are negative Constitutional: Constitutional: Reports as per HPI [facility] Past Medical History Medical History Benign essential hypertension Obesity (BMI 30-39.9) Pure hypercholesterolemia Vitamin D deficiency Surgical History No history of previous surgery Family History Family History Mother Diabetes Father High blood pressure Social History Social History Housing: Apartment Alcohol intake: unknown Patient Tobacco Use Status: Never used Tobacco e-Cigarette/Vaping Use: Never Used Second Hand Smoke Exposure: Yes Advance Directives: No service: No Current occupational status: unemployed Cognitive needs: No Hearing needs: No Vision needs: No Physical Exam ED Vital Signs: Vital Signs - 24 hr 02/02/23 07:31 02/02/23 09:14 Temperature 98 F Pulse Rate 66 59 Respiratory Rate 14 12 Blood Pressure 174/103 H 166/108 H Pulse Oximetry 98 99 Oxygen Delivery Method Room Air BMI result Body Mass Index 30.7 Vital signs have been reviewed and appear to be correct. Blood pressure high. Heart rate normal. Respiratory rate normal. Temperature normal. Oxygen saturation normal. Const General: cooperative, healthy appearing and no acute distress Orientation/consciousness: oriented to person, oriented to place, oriented to time and patient oriented x3 Limitations: no limitations HENMT Head: Yes normocephalic and Yes atraumatic Ears: external ears normal General nose exam: Normal external nose present Face and sinus: Yes face symmetric Mouth: oropharynx normal and moist mucous membranes Throat: Yes uvula midline Eyes Pupils: Equal, round and reactive pupils present Neck Neck: Yes normal visual inspection and Yes supple Resp Effort & Inspection: normal respiratory effort and able to speak in complete sentences Auscultation: clear to auscultation bilaterally Cardio Rate: regular rate Rhythm: regular rhythm Heart sounds: S1 normal heart sound present and S2 normal heart sound present GI Palpation (GI): Soft to palpation and nontender Auscultation: normoactive bowel sounds General: Yes no CVA tenderness Back/Spine/Pelvis Back: no CVA tenderness Skin General skin exam: elasticity normal and turgor normal Neuro General: oriented to person, oriented to place, oriented to time, patient oriented x3, moves all extremities, no focal motor deficits and CN's II-XI intact bilaterally Cranial nerves: Yes Equal, round and reactive pupils present Cognition (Neuro): normal cognition Extrem General: Yes full ROM, Yes no pedal edema and Yes no calf tenderness Psych Mental Status: mental status grossly normal Affect: normal affect Thought process: Normal thought process present Medications Administered Discontinued Medications Generic Name Dose Route Start Last Admin Trade Name Brian PRN Reason Stop Dose Admin Hydrochlorothiazide 12.5 mg 02/02/23 08:05 02/02/23 08:17 Hydrochlorothiazide 12.5 Mg Tablet PO 02/02/23 08:06 12.5 mg ONCE ONE Administration Protocol Medical Decision Making Medical Decision Making [facility] Narrative: Patient is a 42-year-old male with history of hypertension, hypercholesterolemia presenting to the emergency department with elevated blood pressure readings at home for the past week. On exam patient is awake, A+Ox3, BP high, VS otherwise WNL, afebrile, normal neurological exam without focal deficits, RRR, LS CTA throughout, abdomen soft and nontender. Given reported symptoms and physical exam findings, initial differential includes ACS, dehydration, electrolyte abnormality, subtherapeutic anihypertensive dosing. Labs notable for normal troponin, no leukocytosis raising concern for infection, normal H&H, no electrolye abnormality or MARIA D. X-ray notable for normal chest. My interpretation is in agreement with the radiologist's interpretation. Review of abdominal CT from 09/08/21 reveals no evidence of adrenal tumor. Visual acuity WNL. Differential Diagnosis Differential Diagnoses: The differential diagnosis associated with the presentation includes As per MDM. Lab Data [facility] Lab Attestation statement: I reviewed the patient's lab results. As per [facility]. 02/02/23 07:48 02/02/23 07:48 Labs: Lab Results 02/02/23 02/02/23 02/02/23 Range/Units 07:48 07:48 07:48 WBC 5.9 (4.8-10.8) X10*3/uL RBC 5.06 (4.60-5.80) X10*6/uL Hgb 15.3 (14.0-18.0) g/dl Hct 44.4 (42.0-52.0) % MCV 87.7 (80.0-98.0) fL MCH 30.2 (27.0-33.0) pg MCHC 34.5 (31.0-36.0) g/dl RDW 12.2 (11.0-16.0) % Plt Count 216 (160-400) X10*3/uL MPV 11.2 (9.4-12.4) fL Immature Gran % (Auto) 0.3 (0.0-0.4) % Neut % (Auto) 64.9 (45-73) % Lymph % (Auto) 25.9 (20-40) % [place] % (Auto) 7.7 (2-11) % Eos % (Auto) 0.7 (0-4) % Baso % (Auto) 0.5 (0-2) % Lymph # (Auto) 1.5 (1.2-4.9) X10*3/uL [place] # (Auto) 0.5 (0.1-1.2) X10*3/uL Eos # (Auto) 0.0 (0.0-0.4) X10*3/uL Baso # (Auto) 0.0 (0.0-0.2) X10*3/uL Abs Immat Gran (auto) 0.02 (0.00-0.03) X10*3/uL Absolute Neuts (auto) 3.8 (2.0-8.3) x10*3/uL Absolute Nucleated RBC 0.000 (0.0-0.012) X10*3/uL Nucleated RBC % (auto) 0.0 (0.0-0.2) /100WBC Sodium 141 (135-145) mmol/L Potassium 3.7 D (3.3-5.1) mmol/L Chloride 105 (96-108) mmol/L Carbon Dioxide 29 (22-29) mmol/L Anion Gap 11 L (12-20) BUN 8 L (9-16) mg/dL Creatinine 0.94 (0.5-1.4) mg/dL Estim Creat Clear Calc 106.6 Estimated GFR > 60 Random Glucose 103 (60-115) mg/dL Calcium 9.3 (8.4-10.2) mg/dL Troponin I High Sens < 2.7 (<3.5-35.0) ng/L Independent Interpretation I performed an independent interpretation of an: EKG and Plain X-Ray Interpretation: EKG: normal sinus rhythm, rate 64, normal [place] and QT intervals, no evidence of STEMI Normal chest x-ray Radiology Impression Discussion of test interpretation with radiology: I have reviewed the radiologist's reading. Radiologist Impression: FINDINGS: No significant abnormality is noted involving the heart, lungs, mediastinum, bony thorax or soft tissues. XR/XR chest 1V IMPRESSION: No acute cardiopulmonary process. ? External Record Review External record reviewed: Inpatient record, Office record and Outpatient record Prescription Management I considered prescription management with: Other (HCTZ) Discharge Plan Discharge Clinical Impression: Benign essential hypertension, Elevated blood pressure reading Patient Disposition: Home, Self-Care Instructions: Chronic Hypertension (DC), DASH Eating Plan (ED) Additional Instructions: You were evaluated in the emergency department today for elevated blood pressure readings. You were given an additional blood pressure medication today in the ED, and are being discharged home on the same. Please contact your PCP as soon as possible for follow up appointment for blood pressure recheck (can be a nurse visit). There is also information about the DASH diet included in your discharge instructions, please adhere to this diet as closely as possible for optimal blood pressure. Return to the emergency department if you experience chest pain, shortness of breath, changes in vision, new weakness, numbness, or tingling, or any other concerning symptoms. Prescriptions: New hydrochlorothiazide 12.5 mg tablet 12.5 mg PO DAILY Qty: 14 0RF No Action (DME) blood pressure monitor [Blood Pressure Kit] Kit See Rx Instructions .Route Qty: 1 0RF Rx Instructions: As directed atorvastatin 10 mg tablet 10 mg PO BEDTIME 30 Days Qty: 30 3RF lisinopril 10 mg tablet 10 mg PO DAILY 90 Days Qty: 90 1RF doxycycline hyclate 100 mg tablet 100 mg PO BID Qty: 20 0RF cholecalciferol (vitamin D3) 50 mcg (2,000 unit) capsule 50 mcg PO DAILY 90 Days Qty: 90 3RF
[2023-02-02 07:53] LABS: MANUAL DIFF FLAG NO
[2023-02-02 07:58] LABS: Basophils Percent Auto 0.5 % (0-2); Eosinophils Percent Auto 0.7 % (0-4); Hematocrit 44.4 % (42.0-52.0); Hemoglobin 15.3 g/dl (14.0-18.0); Imm Gran Abs Auto 0.02 X10*3/uL (0.00-0.03); Imm Gran Pct Auto 0.3 % (0.0-0.4); Lymphocytes Absolute Auto 1.5 X10*3/uL (1.2-4.9); Lymphocytes Percent Auto 25.9 % (20-40); Mean Corpuscular HGB Conc 34.5 g/dl (31.0-36.0); Mean Corpuscular Hemoglobin 30.2 pg (27.0-33.0); Mean Corpuscular Volume 87.7 fL (80.0-98.0); Mean Platelet Volume 11.2 fL (9.4-12.4); Monocytes Absolute Auto 0.5 X10*3/uL (0.1-1.2); Monocytes Percent Auto 7.7 % (2-11); Neutrophils Absolute Auto 3.8 x10*3/uL (2.0-8.3); Neutrophils Percent Auto 64.9 % (45-73); Platelet Count 216 X10*3/uL (160-400); Red Blood Count 5.06 X10*6/uL (4.60-5.80); Red Cell Distribution Width 12.2 % (11.0-16.0); White Blood Count 5.9 X10*3/uL (4.8-10.8)
[2023-02-02 08:04] LABS: Anion Gap 11 (12-20); Blood Urea Nitrogen 8 mg/dL (9-16); Calcium 9.3 mg/dL (8.4-10.2); Carbon Dioxide 29 mmol/L (22-29); Chloride 105 mmol/L (96-108); Creatinine Clr Calc Pharmacy 106.6; Estimated Glomerular Filt Rate > 60; Glucose Random 103 mg/dL (60-115); Potassium 3.7 mmol/L (3.3-5.1); Sodium 141 mmol/L (135-145)
[2023-02-02 08:17] LABS: Troponin-I High Sensitivity < 2.7 ng/L (<3.5-35.0)
[2023-02-02] MEDS: hydroCHLOROthiazide 12.5 MG TABLET PO (08:17)
--- NOTE | 2023-02-02 08:32 | PC.NURSE ---
sr on monitor, skin wpd, watching tv, no complaints at this time, nad
[2023-02-02 09:14] VITALS: BP 166/108; PULSE 59; RESP 12; O2SAT 99
== END 2023-02-02 09:40 | disposition home or self-care (01) ==
PROVIDERS: Emergency Provider Emergency Medicine; PCP Internal Medicine
DX: I10 Essential (primary) hypertension (principal); E78.00 Pure hypercholesterolemia, unspecified; Z79.899 Other long term (current) drug therapy
CPT/HCPCS: 36415; 71045; 80048; 84484; 85025; 93005; 99283; 99284

== ENCOUNTER → 2023-02-02 07:29 | Outpatient (BNV) | payer OTHER, SELFPAY | PROVIDERS: Emergency Provider Emergency Medicine; PCP Internal Medicine; Visit Provider Internal Medicine Cardiovascular Disease | DX: I10 Essential (primary) hypertension (principal) | CPT/HCPCS: 93010 ==

== ENCOUNTER 2023-02-03 16:44 | Outpatient (REF) | payer OTHER, SELFPAY ==
[2023-02-04 07:50] LABS: Syphilis Screen Nonreactive (Nonreactive)
[2023-02-04 09:04] LABS: HBS Num1 0.34 mIU/mL (0-7.99); HBc Num1 0.09 S/CO (0.00-0.79); HIV Num 1 0.06 S/CO (0.00-0.99); Hepatitis B Core Antibody Nonreactive (Nonreactive); ~HepC Num1 0.12 S/CO (0.00-0.79); ~Hepatitis B Surface Antibody NONREACTIVE (Nonreactive); ~Hepatitis C Antibody Nonreactive (Nonreactive)
[2023-02-04 09:05] LABS: HBsAGNum1 0.38 S/CO (0.00-0.99); HIV AB/AG Nonreactive (Nonreactive); Hepatitis B Surface Antigen Negative (Negative)
== END 2023-02-03 16:45 | disposition home or self-care (01) ==
LOC: HO.LAB 16:44
PROVIDERS: PCP Internal Medicine; Visit Provider Internal Medicine
DX: Z11.4 Encounter for screening for human immunodeficiency virus [HIV] (principal); Z20.2 Contact with and (suspected) exposure to infections with a predominantly sexual mode of transmission
CPT/HCPCS: 36415; 86704; 86706; 86780; 86803; 87340; 87389

== ENCOUNTER 2023-03-23 06:06 | Outpatient (REF) | payer OTHER, SELFPAY ==
[2023-03-23 06:21] LABS: MANUAL DIFF FLAG NO
[2023-03-23 07:26] LABS: Basophils Percent Auto 0.5 % (0-2); Eosinophils Absolute Auto 0.1 X10*3/uL (0.0-0.4); Eosinophils Percent Auto 1.6 % (0-4); Hematocrit 46.8 % (42.0-52.0); Hemoglobin 15.8 g/dl (14.0-18.0); Imm Gran Abs Auto 0.03 X10*3/uL (0.00-0.03); Imm Gran Pct Auto 0.5 % (0.0-0.4); Lymphocytes Absolute Auto 1.9 X10*3/uL (1.2-4.9); Lymphocytes Percent Auto 29.1 % (20-40); Mean Corpuscular HGB Conc 33.8 g/dl (31.0-36.0); Mean Corpuscular Hemoglobin 30.2 pg (27.0-33.0); Mean Corpuscular Volume 89.5 fL (80.0-98.0); Mean Platelet Volume 11.4 fL (9.4-12.4); Monocytes Absolute Auto 0.6 X10*3/uL (0.1-1.2); Monocytes Percent Auto 8.9 % (2-11); Neutrophils Absolute Auto 3.8 x10*3/uL (2.0-8.3); Neutrophils Percent Auto 59.4 % (45-73); Platelet Count 223 X10*3/uL (160-400); Red Blood Count 5.23 X10*6/uL (4.60-5.80); Red Cell Distribution Width 12.9 % (11.0-16.0); White Blood Count 6.4 X10*3/uL (4.8-10.8)
[2023-03-23 07:33] LABS: Alanine Aminotransferase 14 U/L (0-40); Albumin Level 4.5 g/dL (3.5-5.0); Alkaline Phosphatase 62 U/L (39-117); Anion Gap 13 (12-20); Aspartate Amino Transferase 18 U/L (5-37); Bilirubin Total 1.4 mg/dL (0.0-1.0); Blood Urea Nitrogen 8 mg/dL (9-16); Calcium 9.8 mg/dL (8.4-10.2); Carbon Dioxide 30 mmol/L (22-29); Chloride 105 mmol/L (96-108); Cholesterol 137 mg/dL (<200); Estimated Glomerular Filt Rate > 60; Glucose Fasting 97 mg/dL (60-99); HDL Cholesterol 48 mg/dL (>40); LDL Cholesterol Calculated 79 mg/dL (<100); Potassium 4.7 mmol/L (3.3-5.1); Sodium 143 mmol/L (135-145); Total Protein 7.3 g/dL (6.5-8.0); Triglycerides 52 mg/dL (<150)
[2023-03-23 07:47] LABS: Vitamin D 25-OH Total 33.1 ng/mL (>30)
[2023-03-23 08:26] LABS: Appearance Urine Clear; Color Urine Yellow; Glucose Urine UA Negative (Negative); Leukocyte Esterase Urine Negative (Negative); Nitrite Urine Negative (Negative); Specific Gravity - Urine 1.015 (1.005-1.025); Urine Blood Negative (Negative); Urine Ketones Negative (Negative); Urine Protein Negative (Neg-Trace)
== END 2023-03-23 06:07 | disposition home or self-care (01) ==
LOC: HO.LAB 06:06
PROVIDERS: PCP Internal Medicine; Visit Provider Internal Medicine
DX: R30.0 Dysuria (principal); I10 Essential (primary) hypertension; E78.00 Pure hypercholesterolemia, unspecified; E55.9 Vitamin D deficiency, unspecified
CPT/HCPCS: 36415; 80053; 80061; 81003; 82306; 85025

== ENCOUNTER 2023-03-29 12:49 | Outpatient (AMB) | payer OTHER, SELFPAY ==
[2023-03-29 12:51] VITALS: BP 128/88; PULSE 70; O2SAT 98; BMI 30.4
--- NOTE | 2023-03-29 12:51 | A.OFFPC_ITS ---
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 Accompanied by: Self / Same As Patient Allergies No Known Allergies [No Known Allergies*] Allergy (Verified 03/29/23 13:10) Medication List - Last Reconciled 03/29/23 by Jann Triplett MD atorvastatin 10 mg PO BEDTIME 30 days blood pressure monitor (Blood Pressure Kit) As directed cholecalciferol (vitamin D3) 50 mcg PO DAILY 90 days doxycycline hyclate 100 mg PO BID hydrochlorothiazide 12.5 mg PO DAILY lisinopril 10 mg PO DAILY 90 days Tobacco use date assessed: 03/29/23 Dental Screening Dental Screen Date: 03/29/23 Did you have a dental visit in the last 12 months?: Yes Did you have a dental problem in the last 6 months where you did not have access to dental care?: No Was dental information given to patient?: Patient has dentist HPI Annual Exam HPI Details Patient comes in today for his annual physical examination States that he feels okay He denies any headaches or dizziness Denies any chest pains, no SOB No nausea/vomiting, no abdominal pain No change in bowel habits noted Denies any acute urinary symptoms Had his follow up labs done last week - to discuss his results [facility] Medical History Benign essential hypertension Pure hypercholesterolemia Vitamin D deficiency Obesity (BMI 30-39.9) Surgical History No history of previous surgery Family History Mother Diabetes Father High blood pressure Social History Housing: Apartment Alcohol intake: unknown Patient Tobacco Use Status: Never used Tobacco e-Cigarette/Vaping Use: Never Used Second Hand Smoke Exposure: Yes service: No Current occupational status: unemployed Cognitive needs: No Hearing needs: No Vision needs: No Questionnaire PHQ-9 Over the last 2 weeks, how often have you been bothered by any of the following problems? 1. Little interest or pleasure in doing things: not at all 2. Feeling down, depressed, or hopeless: not at all 3. Trouble falling or staying asleep, or sleeping too much: not at all 4. Feeling tired or having little energy: not at all 5. Poor appetite or overeating: not at all 6. Feeling bad about yourself - or that you are a failure or have let yourself or your family down: not at all 7. Trouble concentrating on things, such as reading the newspaper or watching television: not at all 8. Moving or speaking so slowly that other people could have noticed. Or the opposite - being so fidgety or restless that you have been moving around a lot more than usual: not at all 9. Thoughts that you would be better off or of hurting yourself in some way : not at all Total score: 0 Depression Screening Interpretation: Negative 41715 - PHQ-9 Billing: Yes Source: Developed by Drs. Pablo Gomez, Ronda Morales, Wyatt Robledo and colleagues, with an educational christopher from [employer]. Thrive Questionnaire Date Thrive assessed: 03/29/23 I am a: Patient What is your living situation today?: I have a steady place to live Within the past 12 months, did the food you bought not last and you didn't have the money to get more?: Never true Within the past 12 months, did you worry whether your food would run out before you got money to buy more?: Never true Do you have trouble paying for medicines?: No Do you have trouble getting transportation to medical appointments?: No Do you have trouble paying your heating and electricity bill?: No Do you have trouble taking care of your child, family member or friend?: No Do you have trouble with day-to-day activities such as bathing, preparing meals, shopping, managing finances, etc.?: No Are you currently unemployed and looking for a job?: No Are you interested in more education?: No Please select the resources that you would like help with: None Currently or been in a relationship where the following occur: no concerns reported AUDIT C Alcohol Use Questionnaire (AUDIT-C) 1. How often do you have a drink containing alcohol?: Monthly or less 2. How many drinks containing alcohol do you have on a typical day when you are drinking?: 1 or 2 3. How often do you have six or more drinks on one occasion?: Never Total Score: 1 Score Reviewed/Action Taken: Yes GENE-7 AMB Questionnaire GENE-7 Date GENE - 7 assessed: 03/29/23 Feeling nervous, anxious, or on edge: 1 = Several days Not being able to stop or control worryin = Several days Worrying too much about different things: 1 = Several days Trouble relaxin = Not at all Being so restless that it is hard to sit still: 0 = Not at all Becoming easily annoyed or irritable: 0 = Not at all Feeling afraid as if something awful might happen: 0 = Not at all Total GENE-7 score (0-4 normal; 5-9 mild; 10-14 moderate; 15-21 severe): 3 Source: Developed by Drs. Pablo Gomez, Ronda Morales, Wyatt Robledo and colleagues, with an educational christopher from [employer]. Review of Systems Const Denies chills, Denies fatigue, Denies fever(s), Denies headache(s), Denies malaise and Denies weakness Eyes Denies blurry vision, Denies change in vision, Denies irritation and Denies itchy eyes ENT Denies dysphagia, Denies dizziness, Denies otalgia, Denies headache(s), Denies nasal congestion, Reports neck pain (on and off, mostly over both sides near the shoulder areas), Denies odynophagia and Denies sore throat Card Denies chest pain, Denies rapid heart rate, Denies irregular heart rhythm, Denies palpitations and Denies dyspnea Resp Denies chest congestion, Denies cough, Denies dyspnea and Denies wheezing GI Denies abdominal pain, Denies bloating, Denies constipation, Denies dysphagia, Denies heartburn, Denies diarrhea, Denies nausea, Denies odynophagia and Denies vomiting Denies hematuria, Denies difficulty urinating, Denies dysuria, Denies urinary frequency and Denies urinary urgency Musc Denies back pain, Denies arthralgias, Denies joint swelling, Denies muscle weak ness and Reports neck pain (on and off, mostly over both sides near the shoulder areas) Skin/Breast Denies change in pigmentation, Denies lesions, Denies rash and Denies unusual bruising Neuro Denies dizziness, Denies headache(s), Denies paresthesias and Denies weakness Endo Denies fatigue and Denies palpitations Aller/Immun Denies itchy eyes and Denies wheezing Physical exam (Primary Care) Vital Signs: Last Vital Signs Pulse 70 03/29/23 12:51 BP 128/88 03/29/23 12:51 Pulse Ox 98 03/29/23 12:51 Oxygen Delivery Method Room Air 03/29/23 12:51 BMI result Body Mass Index 30.4 Tobacco/Smoking Status: Tobacco use Status Tobacco use date assessed 03/29/23 03/29/23 12:57 Patient Tobacco Use Status Never used Tobacco 03/29/23 12:57 e-Cigarette/Vaping Use Never Used 03/29/23 12:57 PHQ-9: PHQ-9 Score PHQ-9: Total score 0 03/29/23 12:57 Depression Screening Interpretation: Negative Thrive Assessment: Date of Thrive Assessment Date Thrive assessed 03/29/23 03/29/23 12:57 Currently or been in a relationship where the following occur: no concerns reported Const General: no acute distress, alert and awake Orientation/consciousness: patient oriented x3 HENMT Head: Yes normocephalic and Yes atraumatic Ears: external ears normal, TM's normal bilaterally and EAC's normal General nose exam: No nasal discharge present Face and sinus: Yes normal facial exam and Yes sinuses nontender Teeth and gingiva: dentition normal Throat: Yes posterior oropharynx normal and Yes tonsils normal (no TP congestion) Eyes Eyelids: Yes eyelids normal Conjunctivae: conjunctivae normal Pupils: Equal, round and reactive pupils present EOM: EOMs intact bilaterally Neck Neck: Yes no lymphadenopathy and Yes supple Thyroid: Thyroid normal Resp Auscultation: clear to auscultation bilaterally, no rales and no wheezes Cardio Rate: regular rate Rhythm: regular rhythm Heart sounds: no murmurs GI Palpation (GI): Soft to palpation, nontender and No hepatosplenomegaly present Auscultation: normal bowel sounds General: Yes no CVA tenderness Back/Spine/Pelvis Back: no CVA tenderness Cervical Spine: cervical muscular tenderness (mostly over the trapezius muscles near the shoulders bilaterally) Thoracic/Lumbar Spine: thoracic and lumbar spine normal to inspection Skin Lesions: no lesions Rashes: no rashes Neuro General: patient oriented x3, moves all extremities, no focal motor deficits and CN's II-XI intact bilaterally Cranial nerves: Yes Equal, round and reactive pupils present Cognition (Neuro): normal cognition Gait exam (Neuro): Normal gait present Extrem General: Yes no clubbing, cyanosis or edema Results Reviewed Results Reviewed: Laboratory Tests 03/23/23 03/23/23 06:18 06:20 WBC 6.4 Hgb 15.8 Hct 46.8 Plt Count 223 Sodium 143 Potassium 4.7 D Creatinine 0.91 Estimated GFR > 60 Fasting Glucose 97 Calcium 9.8 AST 18 ALT 14 Triglycerides 52 Cholesterol 137 LDL Cholesterol, Calc 79 HDL Cholesterol 48 25-OH Vitamin D Total 33.1 Ur Specific Holt 1.015 Urine Protein Negative Urine Glucose (UA) Negative Urine Blood Negative Assessment and Plan Assessment & Plan (1) Annual physical exam: Code(s): Z00.00 - Encounter for general adult medical examination without abnormal findings Plan: Results of his labs done last week reviewed and discussed with patient He is not yet due for any routine cancer screenings at this time (2) Benign essential hypertension: Code(s): I10 - Essential (primary) hypertension Plan: Reinforced low sodium diet - goal is systolic BP of at least 120 to 130 mm or less Continue Lisinopril 10 mg QD and HCTZ 12.5 mg QD Patient is reminded to continue monitoring his blood pressure regularly (3) Pure hypercholesterolemia: Code(s): E78.00 - Pure hypercholesterolemia, unspecified Plan: He is advised that his cholesterol levels have improved significantly from previous Reinforced low cholesterol diet Continue Atorvastatin 10 mg QD Will recheck his fasting lipids and labs in 4 months for follow up (4) Vitamin D deficiency: Code(s): E55.9 - Vitamin D deficiency, unspecified Plan: Continue Vitamin D3 2000 units QD (5) Urinary frequency: Code(s): R35.0 - Frequency of micturition Plan: His urinalysis on his recent labs came out normal; PSA level was normal when last checked a few months ago If his urinary symptoms persist, will consider starting him on a trial of alpha- blockers to help with his symptoms (6) Obesity (BMI 30-39.9): Code(s): E66.9 - Obesity, unspecified Plan: Reinforced diet/exercise as tolerated/lose weight Plan Patient reassured also that his recent STD testings all came back negative Follow up in 4 months Orders: Orders Lipid Panel 4 Months E78.00 - Pure hypercholesterolemia, unspecified Comprehensive [place]. Panel Fast 4 Months E78.00 - Pure hypercholesterolemia, unspecified Complete Blood Count Auto Diff 4 Months I10 - Essential (primary) hypertension UA CC w/rflx Micro + Cult 4 Months R30.0 - Dysuria Vitamin D 25-OH Total 4 Months E55.9 - Vitamin D deficiency, unspecified Coding Level of Care Code Est Pt Prev Care 40-64y(87584) Diagnoses Annual physical exam Z00.00 Benign essential hypertension I10 Pure hypercholesterolemia E78.00 Vitamin D deficiency E55.9 Urinary frequency R35.0 Obesity (BMI 30-39.9) E66.9
== END 2023-03-29 13:24 | disposition home or self-care (01) ==
PROVIDERS: Visit Provider Internal Medicine
DX: Z00.00 Encounter for general adult medical examination without abnormal findings (principal); I10 Essential (primary) hypertension; E55.9 Vitamin D deficiency, unspecified; Z68.30 Body mass index [BMI] 30.0-30.9, adult; E78.00 Pure hypercholesterolemia, unspecified; R35.0 Frequency of micturition; E66.9 Obesity, unspecified
CPT/HCPCS: 99396

== ENCOUNTER 2023-05-02 17:14 | Outpatient (AMB) | payer OTHER, SELFPAY ==
[2023-05-02 17:15] VITALS: BP 136/82; PULSE 74; O2SAT 98; BMI 30.3
--- NOTE | 2023-05-02 17:15 | MHC.PC.OV ---
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 Accompanied by: Self / Same As Patient Allergies No Known Allergies [No Known Allergies*] Allergy (Verified 05/03/23 03:41) Medication List - Last Reconciled 05/03/23 by Jann Triplett MD atorvastatin 10 mg PO BEDTIME 30 days blood pressure monitor (Blood Pressure Kit) As directed cholecalciferol (vitamin D3) 50 mcg PO DAILY 90 days doxycycline hyclate 100 mg PO BID hydrochlorothiazide 12.5 mg PO DAILY lisinopril 10 mg PO DAILY 90 days Tobacco use date assessed: 05/02/23 Dental Screening Dental Screen Date: 05/02/23 Did you have a dental visit in the last 12 months?: No Did you have a dental problem in the last 6 months where you did not have access to dental care?: No Was dental information given to patient?: No HPI 4 Month F/Up HPI Details Patient comes in today for his follow-up visit States that he feels okay He denies any headaches or dizziness Denies any chest pains, no shortness of breath No nausea / vomiting, no abdominal pain No change in bowel habits noted [facility] Medical History Benign essential hypertension Pure hypercholesterolemia Vitamin D deficiency Obesity (BMI 30-39.9) Surgical History No history of previous surgery Family History Mother Diabetes Father High blood pressure Social History Housing: Apartment Alcohol intake: unknown Patient Tobacco Use Status: Never used Tobacco e-Cigarette/Vaping Use: Never Used Second Hand Smoke Exposure: Yes service: No Current occupational status: unemployed Cognitive needs: No Hearing needs: No Vision needs: No Questionnaire PHQ-9 Over the last 2 weeks, how often have you been bothered by any of the following problems? 1. Little interest or pleasure in doing things: not at all 2. Feeling down, depressed, or hopeless: not at all 3. Trouble falling or staying asleep, or sleeping too much: not at all 4. Feeling tired or having little energy: not at all 5. Poor appetite or overeating: not at all 6. Feeling bad about yourself - or that you are a failure or have let yourself or your family down: not at all 7. Trouble concentrating on things, such as reading the newspaper or watching television: not at all 8. Moving or speaking so slowly that other people could have noticed. Or the opposite - being so fidgety or restless that you have been moving around a lot more than usual: not at all 9. Thoughts that you would be better off or of hurting yourself in some way: not at all Total score: 0 Depression Screening Interpretation: Negative Depression Screening Done: Yes 86117 - PHQ-9 Billing: Yes Source: Developed by Drs. Pablo Gomez, Ronda Morales, Wyatt Robledo and colleagues, with an educational christopher from [employer]. Thrive Questionnaire Date Thrive assessed: 05/02/23 I am a: Patient What is your living situation today?: I have a steady place to live Within the past 12 months, did the food you bought not last and you didn't have the money to get more?: Never true Within the past 12 months, did you worry whether your food would run out before you got money to buy more?: Never true Do you have trouble paying for medicines?: No Do you have trouble getting transportation to medical appointments?: No Do you have trouble paying your heating and electricity bill?: No Do you have trouble taking care of your child, family member or friend?: No Do you have trouble with day-to-day activities such as bathing, preparing meals, shopping, managing finances, etc.?: No Are you currently unemployed and looking for a job?: No Are you interested in more education?: No Please select the resources that you would like help with: None Currently or been in a relationship where the following occur: no concerns reported AUDIT C Alcohol Use Questionnaire (AUDIT-C) 1. How often do you have a drink containing alcohol?: Monthly or less 2. How many drinks containing alcohol do you have on a typical day when you are drinking?: 1 or 2 3. How often do you have six or more drinks on one occasion?: Never Total Score: 1 Score Reviewed/Action Taken: Yes GENE-7 AMB Questionnaire GENE-7 Date GENE - 7 assessed: 03/29/23 Source: Developed by Drs. Pablo Gomez, Ronda Morales, Wyatt Robledo and colleagues, with an educational christopher from [employer]. Review of Systems Const Denies chills, Denies fatigue, Denies fever(s) and Denies headache(s) ENT Denies dysphagia, Denies dizziness, Denies otalgia, Denies headache(s), Denies neck pain, Denies odynophagia and Denies sore throat Card Denies chest pain, Denies palpitations and Denies dyspnea Resp Denies cough and Denies dyspnea GI Denies abdominal pain, Denies constipation, Denies dysphagia, Denies heartburn, Denies diarrhea, Denies nausea, Denies odynophagia and Denies vomiting Denies dysuria, Denies nocturia and Denies urinary frequency Musc Denies neck pain Skin/Breast Denies rash Neuro Denies dizziness and Denies headache(s) Endo Denies fatigue and Denies palpitations Physical exam (Primary Care) Vital Signs: Last Vital Signs Pulse 74 05/02/23 17:15 BP 136/82 05/02/23 17:15 Pulse Ox 98 05/02/23 17:15 Oxygen Delivery Method Room Air 05/02/23 17:15 BMI result Body Mass Index 30.3 Tobacco/Smoking Status: Tobacco use Status Tobacco use date assessed 05/02/23 05/02/23 17:22 Patient Tobacco Use Status Never used Tobacco 05/02/23 17:22 e-Cigarette/Vaping Use Never Used 05/02/23 17:22 PHQ-9: PHQ-9 Score PHQ-9: Total score 0 05/02/23 17:37 Depression Screening Interpretation: Negative Thrive Assessment: Date of Thrive Assessment Date Thrive assessed 05/02/23 05/02/23 17:22 Currently or been in a relationship where the following occur: no concerns reported Const General: no acute distress and alert HENMT Ears: TM's normal bilaterally and EAC's normal Throat: Yes posterior oropharynx normal and Yes tonsils normal (no TP congestion) Neck Neck: Yes no lymphadenopathy and Yes supple Resp Auscultation: clear to auscultation bilaterally, no rales and no wheezes Cardio Rate: regular rate Rhythm: regular rhythm Heart sounds: no murmurs GI Palpation (GI): Soft to palpation and nontender Auscultation: normal bowel sounds Skin General skin exam: no rashes or lesions noted Extrem General: Yes no clubbing, cyanosis or edema Assessment and Plan Assessment & Plan (1) Benign essential hypertension: Code(s): I10 - Essential (primary) hypertension Plan: Patient's blood pressure appears adequately controlled Reinforced low sodium diet - goal is systolic BP of at least 120 to 130 mm or less Continue Lisinopril 10 mg QD and HCTZ 12.5 mg QD Patient is reminded to continue monitoring his blood pressure regularly (2) Pure hypercholesterolemia: Code(s): E78.00 - Pure hypercholesterolemia, unspecified Plan: Reinforced low cholesterol diet Continue Atorvastatin 10 mg QD Will recheck his fasting lipids and labs as scheduled in 3 months for follow up (3) Vitamin D deficiency: Code(s): E55.9 - Vitamin D deficiency, unspecified Plan: Continue Vitamin D3 2000 units QD (4) Obesity (BMI 30-39.9): Code(s): E66.9 - Obesity, unspecified Plan: Reinforced diet/exercise as tolerated/lose weight Plan Follow up in 3 months Coding Level of Care Code Est Pt Level 3 (51023) Diagnoses Benign essential hypertension I10 Pure hypercholesterolemia E78.00 Vitamin D deficiency E55.9 Obesity (BMI 30-39.9) E66.9
== END 2023-05-02 17:39 | disposition home or self-care (01) ==
LOC: HO.HMGH 17:14
PROVIDERS: PCP Internal Medicine; Visit Provider Internal Medicine
DX: I10 Essential (primary) hypertension (principal); E78.00 Pure hypercholesterolemia, unspecified; Z68.30 Body mass index [BMI] 30.0-30.9, adult; E66.9 Obesity, unspecified; E55.9 Vitamin D deficiency, unspecified
CPT/HCPCS: 99213

== ENCOUNTER 2023-11-26 10:44 | Outpatient (REF) | payer OTHER, SELFPAY ==
[2023-11-26 10:51] LABS: MANUAL DIFF FLAG NO
[2023-11-26 11:19] LABS: Appearance Urine Clear; Color Urine Yellow; Glucose Urine UA Negative (Negative); Leukocyte Esterase Urine Negative (Negative); Nitrite Urine Negative (Negative); PH 7.5 (5.0-9.0); Specific Gravity - Urine 1.015 (1.005-1.025); Urine Blood Negative (Negative); Urine Ketones Negative (Negative); Urine Protein Trace mg/dL (Neg-Trace)
[2023-11-26 11:27] LABS: Basophils Percent Auto 0.6 % (0-2); Eosinophils Absolute Auto 0.1 X10*3/uL (0.0-0.4); Eosinophils Percent Auto 1.1 % (0-4); Hematocrit 44.9 % (42.0-52.0); Hemoglobin 15.8 g/dl (14.0-18.0); Imm Gran Abs Auto 0.02 X10*3/uL (0.00-0.03); Imm Gran Pct Auto 0.3 % (0.0-0.4); Lymphocytes Absolute Auto 1.6 X10*3/uL (1.2-4.9); Lymphocytes Percent Auto 25.4 % (20-40); Mean Corpuscular HGB Conc 35.2 g/dl (31.0-36.0); Mean Corpuscular Hemoglobin 30.9 pg (27.0-33.0); Mean Corpuscular Volume 87.7 fL (80.0-98.0); Mean Platelet Volume 11.6 fL (9.4-12.4); Monocytes Absolute Auto 0.5 X10*3/uL (0.1-1.2); Monocytes Percent Auto 8.2 % (2-11); Neutrophils Absolute Auto 4.1 x10*3/uL (2.0-8.3); Neutrophils Percent Auto 64.4 % (45-73); Platelet Count 204 X10*3/uL (160-400); Red Blood Count 5.12 X10*6/uL (4.60-5.80); Red Cell Distribution Width 12.8 % (11.0-16.0); White Blood Count 6.3 X10*3/uL (4.8-10.8)
[2023-11-26 12:30] LABS: Alanine Aminotransferase 18 U/L (0-40); Albumin Level 4.5 g/dL (3.5-5.0); Anion Gap 14 (12-20); Aspartate Amino Transferase 23 U/L (5-37); Bilirubin Total 1.6 mg/dL (0.0-1.0); Blood Urea Nitrogen 8 mg/dL (9-16); Calcium 9.6 mg/dL (8.4-10.2); Carbon Dioxide 26 mmol/L (22-29); Chloride 107 mmol/L (96-108); Cholesterol 148 mg/dL (<200); Estimated Glomerular Filt Rate > 60; Glucose Fasting 91 mg/dL (60-99); HDL Cholesterol 47 mg/dL (>40); LDL Cholesterol Calculated 89 mg/dL (<100); Potassium 4.5 mmol/L (3.3-5.1); Sodium 142 mmol/L (135-145); Total Protein 7.6 g/dL (6.5-8.0); Triglycerides 61 mg/dL (<150); Vitamin D 25-OH Total 23.3 ng/mL (>30)
[2023-11-26 12:33] LABS: Alkaline Phosphatase 69 U/L (39-117)
== END 2023-11-26 10:45 | disposition home or self-care (01) ==
LOC: HO.LAB 10:44
PROVIDERS: PCP Internal Medicine; Visit Provider Internal Medicine
DX: E78.00 Pure hypercholesterolemia, unspecified (principal); I10 Essential (primary) hypertension; R30.0 Dysuria; E55.9 Vitamin D deficiency, unspecified
CPT/HCPCS: 36415; 80053; 80061; 81003; 82306; 85025

== ENCOUNTER 2023-11-30 12:22 | Outpatient (AMB) | payer OTHER, SELFPAY ==
[2023-11-30 12:31] VITALS: BP 148/86; PULSE 60; O2SAT 97; BMI 31.5
--- NOTE | 2023-11-30 12:31 | A.OFFPC_ITS ---
Vital Signs 11/30/23 12:31 11/30/23 13:05 Height 5 ft 7 in Weight 201 lb 0.6 oz BMI 31.5 BP 148/86 H 140/100 H Blood Pressure Location Lt brachial Lt brachial Position Sitting Sitting Pulse 60 Pulse Source Pulse Oximeter Pulse Oximetry (%) 97 Oxygen Delivery Method Room Air Intake Visit Reasons: hyperlipidemia, HTN Allergies No Known Allergies [No Known Allergies*] Allergy (Verified 11/30/23 12:56) Medication List - Last Reconciled 11/30/23 by Jann Triplett MD atorvastatin 10 mg PO BEDTIME blood pressure monitor (Blood Pressure Kit) As directed cholecalciferol (vitamin D3) 50 mcg PO DAILY 90 days lisinopril 10 mg PO DAILY 90 days Tobacco use date assessed: 11/30/23 Dental Screening Dental Screen Date: 11/30/23 Did you have a dental visit in the last 12 months?: Yes Did you have a dental problem in the last 6 months where you did not have access to dental care?: No Was dental information given to patient?: Patient has dentist HPI hyperlipidemia, HTN HPI Details Patient comes in today for his follow up visit States that he feels okay He denies any headaches or dizziness Denies any chest pains, no SOB No nausea/vomiting, no abdominal pain No change in bowel habits noted Had his follow up labs done a few days ago - to discuss his results [facility] Medical History Benign essential hypertension Pure hypercholesterolemia Vitamin D deficiency Obesity (BMI 30-39.9) Surgical History No history of previous surgery Family History Mother Diabetes Father High blood pressure Social History Housing: Apartment Alcohol intake: unknown Patient Tobacco Use Status: Never used Tobacco e-Cigarette/Vaping Use: Never Used Second Hand Smoke Exposure: Yes service: No Current occupational status: unemployed Cognitive needs: No Hearing needs: No Vision needs: No Questionnaire PHQ-9 Over the last 2 weeks, how often have you been bothered by any of the following problems? 1. Little interest or pleasure in doing things: not at all 2. Feeling down, depressed, or hopeless: not at all 3. Trouble falling or staying asleep, or sleeping too much: not at all 4. Feeling tired or having little energy: not at all 5. Poor appetite or overeating: not at all 6. Feeling bad about yourself - or that you are a failure or have let yourself or your family down: not at all 7. Trouble concentrating on things, such as reading the newspaper or watching television: not at all 8. Moving or speaking so slowly that other people could have noticed. Or the opposite - being so fidgety or restless that you have been moving around a lot more than usual: not at all 9. Thoughts that you would be better off or of hurting yourself in some way: not at all Total score: 0 Depression Screening Interpretation: Negative Depression Screening Done: Yes 05215 - PHQ-9 Billing: Yes Source: Developed by Drs. Pablo Gomez, Ronda Morales, Wyatt Robledo and colleagues, with an educational christopher from [employer]. Thrive Questionnaire Date Thrive assessed: 11/30/23 I am a: Patient What is your living situation today?: I have a steady place to live Within the past 12 months, did the food you bought not last and you didn't have the money to get more?: Never true Within the past 12 months, did you worry whether your food would run out before you got money to buy more?: Never true Do you have trouble paying for medicines?: No Do you have trouble getting transportation to medical appointments?: No Do you have trouble paying your heating and electricity bill?: No Do you have trouble taking care of your child, family member or friend?: No Do you have trouble with day-to-day activities such as bathing, preparing meals, shopping, managing finances, etc.?: No Are you currently unemployed and looking for a job?: No Are you interested in more education?: No Please select the resources that you would like help with: None Currently or been in a relationship where the following occur: no concerns reported THRIVE Score: 0 AUDIT C Alcohol Use Questionnaire (AUDIT-C) 1. How often do you have a drink containing alcohol?: Monthly or less 2. How many drinks containing alcohol do you have on a typical day when you are drinking?: 1 or 2 3. How often do you have six or more drinks on one occasion?: Never Total Score: 1 Score Reviewed/Action Taken: Yes GENE-7 AMB Questionnaire GENE-7 Date GENE - 7 assessed: 11/30/23 Source: Developed by Drs. Pablo Gomez, Ronda Morales, Wyatt Robledo and colleagues, with an educational christopher from [employer]. Review of Systems Const Denies chills, Denies fatigue, Denies fever(s) and Denies headache(s) ENT Denies dysphagia, Denies dizziness, Denies otalgia, Denies headache(s), Denies neck pain, Denies odynophagia and Denies sore throat Card Denies chest pain, Denies palpitations and Denies dyspnea Resp Denies cough and Denies dyspnea GI Denies abdominal pain, Denies constipation, Denies dysphagia, Denies heartburn, Denies diarrhea, Denies nausea, Denies odynophagia and Denies vomiting Denies dysuria, Denies nocturia and Denies urinary frequency Musc Denies neck pain Skin/Breast Denies rash Neuro Denies dizziness and Denies headache(s) Endo Denies fatigue and Denies palpitations Physical exam (Primary Care) Vital Signs: Last Vital Signs Pulse 60 11/30/23 12:31 BP 148/86 H 11/30/23 12:31 Pulse Ox 97 11/30/23 12:31 Oxygen Delivery Method Room Air 11/30/23 12:31 BMI result Body Mass Index 31.5 Tobacco/Smoking Status: Tobacco use Status Tobacco use date assessed 11/30/23 11/30/23 12:32 Patient Tobacco Use Status Never used Tobacco 11/30/23 12:32 e-Cigarette/Vaping Use Never Used 11/30/23 12:32 PHQ-9: PHQ-9 Score PHQ-9: Total score 0 11/30/23 12:37 Depression Screening Interpretation: Negative Thrive Assessment: Date of Thrive Assessment Date Thrive assessed 05/02/23 11/30/23 12:32 Currently or been in a relationship where the following occur: no concerns reported Const General: no acute distress and alert HENMT Ears: TM's normal bilaterally and EAC's normal Throat: Yes posterior oropharynx normal and Yes tonsils normal (no TP congestion) Neck Neck: Yes no lymphadenopathy and Yes supple Thyroid: Thyroid normal Resp Auscultation: clear to auscultation bilaterally, no rales and no wheezes Cardio Rate: regular rate Rhythm: regular rhythm Heart sounds: no murmurs GI Palpation (GI): Soft to palpation and nontender Auscultation: normal bowel sounds Skin General skin exam: no rashes or lesions noted Extrem General: Yes no clubbing, cyanosis or edema Results Reviewed Results Reviewed: Laboratory Tests 11/26/23 11/26/23 10:51 10:54 WBC 6.3 Hgb 15.8 Hct 44.9 Plt Count 204 Sodium 142 Potassium 4.5 Creatinine 1.08 Estimated GFR > 60 Fasting Glucose 91 Calcium 9.6 AST 23 ALT 18 Triglycerides 61 Cholesterol 148 LDL Cholesterol, Calc 89 HDL Cholesterol 47 25-OH Vitamin D Total 23.3 L Ur Specific [place] 1.015 Urine Protein Trace Urine Glucose (UA) Negative Urine Blood Negative Urine Nitrite Negative Ur Leukocyte Esterase Negative Assessment and Plan Assessment & Plan (1) Benign essential hypertension: Code(s): I10 - Essential (primary) hypertension Plan: Patient's blood pressure appears high today Reinforced low sodium diet - goal is systolic BP of at least 120 to 130 mm or less He is currently only on Lisinopril 10 mg QD for his blood pressure; he was started on HCTZ 12.5 mg QD when he presented to the ER with high BP back in January 2023 but he was only prescribed #14 tablets at the time and patient did not refill the Rx after he finished taking his HCTZ back then for 2 weeks Will now INCREASE his Lisinopril to 20 mg QD - new Rx sent Patient is reminded to continue monitoring his blood pressure regularly (2) Pure hypercholesterolemia: Code(s): E78.00 - Pure hypercholesterolemia, unspecified Plan: Results of his labs done a few days ago reviewed and discussed with patient Reinforced low cholesterol diet Continue Atorvastatin 10 mg QD Will recheck his fasting lipids and labs in 4 months for follow up (3) Vitamin D deficiency: Code(s): E55.9 - Vitamin D deficiency, unspecified Plan: He is advised that he should continue on his Vitamin D3 2000 units QD (Rx refilled) as his Vitamin D level dropped on his recent labs (4) Obesity (BMI 30-39.9): Code(s): E66.9 - Obesity, unspecified Plan: Reinforced diet/exercise as tolerated/lose weight Plan Follow up in 4 months Orders: Orders Lipid Panel 4 Months E78.00 - Pure hypercholesterolemia, unspecified Complete Blood Count Auto Diff 4 Months D64.9 - Anemia, unspecified UA CC w/rflx Micro + Cult 4 Months R30.0 - Dysuria Comprehensive Cos Cob. Panel Fast 4 Months E78.00 - Pure hypercholesterolemia, unspecified TSH reflex Free T4 4 Months E78.00 - Pure hypercholesterolemia, unspecified Vitamin D 25-OH Total 4 Months E55.9 - Vitamin D deficiency, unspecified Medications: Changed From lisinopril 10 mg PO DAILY 90 days 90 tabs 1RF I10 - Essential (primary) hypertension To lisinopril 20 mg PO DAILY 90 days 90 tabs 1RF I10 - Essential (primary) hypertension Refilled cholecalciferol (vitamin D3) 50 mcg PO DAILY 90 days 90 caps 3RF E55.9 - Vitamin D deficiency, unspecified Coding Level of Care Code Est Pt Level 4 (62794) Diagnoses Benign essential hypertension I10 Pure hypercholesterolemia E78.00 Vitamin D deficiency E55.9 Obesity (BMI 30-39.9) E66.9
[2023-11-30 13:05] VITALS: BP 140/100
== END 2023-11-30 13:12 | disposition home or self-care (01) ==
PROVIDERS: PCP Internal Medicine; Visit Provider Internal Medicine
DX: I10 Essential (primary) hypertension (principal); E78.00 Pure hypercholesterolemia, unspecified; E55.9 Vitamin D deficiency, unspecified
CPT/HCPCS: 99214

== ENCOUNTER 2024-04-02 16:37 | Outpatient (AMB) | payer OTHER, SELFPAY ==
[2024-04-02 16:46] VITALS: BP 146/100; PULSE 73; O2SAT 98; BMI 32.3
--- NOTE | 2024-04-02 16:46 | A.OFFPC_ITS ---
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 Accompanied by: Self / Same As Patient Allergies No Known Allergies [No Known Allergies*] Allergy (Verified 04/02/24 17:08) Medication List - Last Reconciled 04/02/24 by Jann Triplett MD atorvastatin 10 mg PO BEDTIME blood pressure monitor (Blood Pressure Kit) As directed cholecalciferol (vitamin D3) 50 mcg PO DAILY 90 days lisinopril 20 mg PO DAILY 90 days Tobacco use date assessed: 04/02/24 Dental Screening Dental Screen Date: 04/02/24 Did you have a dental visit in the last 12 months?: Yes Did you have a dental problem in the last 6 months where you did not have access to dental care?: No Was dental information given to patient?: Patient has dentist HPI [facility] f/u HPI Details Patient comes in today for his follow up visit States that he has been experiencing a mild/dull headache all day long today He denies any dizziness Denies any chest pains, no SOB No nausea/vomiting, no abdominal pain No change in bowel habits noted He was not able to get his follow up labs done yet - states that he will try to get them done [facility] Medical History Benign essential hypertension Pure hypercholesterolemia Vitamin D deficiency Obesity (BMI 30-39.9) Surgical History No history of previous surgery Family History Mother Diabetes Father High blood pressure Social History Housing: Apartment Alcohol intake: unknown Patient Tobacco Use Status: Never used Tobacco e-Cigarette/Vaping Use: Never Used Second Hand Smoke Exposure: Yes service: No Current occupational status: unemployed Cognitive needs: No Hearing needs: No Vision needs: No Questionnaire PHQ-9 Over the last 2 weeks, how often have you been bothered by any of the following problems? 1. Little interest or pleasure in doing things: not at all 2. Feeling down, depressed, or hopeless: not at all 3. Trouble falling or staying asleep, or sleeping too much: not at all 4. Feeling tired or having little energy: not at all 5. Poor appetite or overeating: not at all 6. Feeling bad about yourself - or that you are a failure or have let yourself or your family down: not at all 7. Trouble concentrating on things, such as reading the newspaper or watching television: not at all 8. Moving or speaking so slowly that other people could have noticed. Or the opposite - being so fidgety or restless that you have been moving around a lot more than usual: not at all 9. Thoughts that you would be better off or of hurting yourself in some way: not at all Total score: 0 Depression Screening Interpretation: Negative Depression Screening Done: Yes 19956 - PHQ-9 Billing: Yes Source: Developed by Drs. Pablo Gomez, Ronda Morales, Wyatt Robledo and colleagues, with an educational christopher from [employer]. Thrive Questionnaire Date Thrive assessed: 04/02/24 I am a: Patient What is your living situation today?: I have a steady place to live Within the past 12 months, did the food you bought not last and you didn't have the money to get more?: Never true Within the past 12 months, did you worry whether your food would run out before you got money to buy more?: Never true Do you have trouble paying for medicines?: No Do you have trouble getting transportation to medical appointments?: No Do you have trouble paying your heating and electricity bill?: No Do you have trouble taking care of your child, family member or friend?: No Do you have trouble with day-to-day activities such as bathing, preparing meals, shopping, managing finances, etc.?: No Are you currently unemployed and looking for a job?: No Are you interested in more education?: No Please select the resources that you would like help with: None Currently or been in a relationship where the following occur: No concerns reported THRIVE Score: 0 AUDIT C Alcohol Use Questionnaire (AUDIT-C) 1. How often do you have a drink containing alcohol?: Monthly or less 2. How many drinks containing alcohol do you have on a typical day when you are drinking?: 1 or 2 3. How often do you have six or more drinks on one occasion?: Never Total Score: 1 Score Reviewed/Action Taken: Yes GENE-7 AMB Questionnaire GENE-7 Date GENE - 7 assessed: 04/02/24 Feeling nervous, anxious, or on edge: 0 = Not at all Not being able to stop or control worryin = Not at all Worrying too much about different things: 0 = Not at all Trouble relaxin = Not at all Being so restless that it is hard to sit still: 0 = Not at all Becoming easily annoyed or irritable: 0 = Not at all Feeling afraid as if something awful might happen: 0 = Not at all Total GENE-7 score (0-4 normal; 5-9 mild; 10-14 moderate; 15-21 severe): 0 Source: Developed by Drs. Pablo Gomez, Ronda Morales, Wyatt Robledo and colleagues, with an educational christopher from [employer]. Review of Systems Const Denies chills, Denies fatigue, Denies fever(s) and Reports headache(s) ENT Denies dysphagia, Denies dizziness, Denies otalgia, Reports headache(s), Denies neck pain, Denies odynophagia and Denies sore throat Card Denies chest pain, Denies palpitations and Denies dyspnea Resp Denies cough and Denies dyspnea GI Denies abdominal pain, Denies constipation, Denies dysphagia, Denies heartburn, Denies diarrhea, Denies nausea, Denies odynophagia and Denies vomiting Denies dysuria, Denies nocturia and Denies urinary frequency Musc Denies back pain and Denies neck pain Skin/Breast Denies rash Neuro Denies dizziness and Reports headache(s) Endo Denies fatigue and Denies palpitations Physical exam (Primary Care) Vital Signs: Last Vital Signs Pulse 73 04/02/24 16:46 BP 146/100 H 04/02/24 16:46 Pulse Ox 98 04/02/24 16:46 Oxygen Delivery Method Room Air 04/02/24 16:46 BMI result Body Mass Index 32.3 Tobacco/Smoking Status: Tobacco use Status Tobacco use date assessed 04/02/24 04/02/24 16:47 Patient Tobacco Use Status Never used Tobacco 04/02/24 16:47 e-Cigarette/Vaping Use Never Used 04/02/24 16:47 PHQ-9: PHQ-9 Score PHQ-9: Total score 0 04/02/24 17:09 Depression Screening Interpretation: Negative Thrive Assessment: Date of Thrive Assessment Date Thrive assessed 04/02/24 04/02/24 16:47 Currently or been in a relationship where the following occur: No concerns reported Const General: no acute distress and alert HENMT Ears: TM's normal bilaterally and EAC's normal Throat: Yes posterior oropharynx normal and Yes tonsils normal (no TP congestion) Neck Neck: Yes no lymphadenopathy and Yes supple Thyroid: Thyroid normal Resp Auscultation: clear to auscultation bilaterally, no rales and no wheezes Cardio Rate: regular rate Rhythm: regular rhythm Heart sounds: no murmurs GI Palpation (GI): Soft to palpation and nontender Auscultation: normal bowel sounds Skin Rashes: no rashes Extrem General: Yes no clubbing, cyanosis or edema Assessment and Plan Assessment & Plan (1) Benign essential hypertension: Code(s): I10 - Essential (primary) hypertension Plan: Patient's blood pressure is still high today Advised that his persistent dull headache today is likely due to his high blood pressure Reinforced low sodium diet - goal is systolic BP of at least 120 to 130 mm or less Will now INCREASE his Lisinopril further to 30 mg QD - new Rx sent Patient is reminded to continue monitoring his blood pressure regularly Per request, will send in Rx for a BP monitor to his pharmacy (2) Pure hypercholesterolemia: Code(s): E78.00 - Pure hypercholesterolemia, unspecified Plan: Patient was not able to get his follow up labs done yet - states that he will try to get these done [facility] Reinforced low cholesterol diet Continue Atorvastatin 10 mg QD Will recheck his fasting lipids and labs again in 4 months for follow up (3) Vitamin D deficiency: Code(s): E55.9 - Vitamin D deficiency, unspecified Plan: Continue Vitamin D3 2000 units QD (4) Obesity (BMI 30-39.9): Code(s): E66.9 - Obesity, unspecified Plan: Reinforced diet/exercise as tolerated/lose weight Plan Follow up in 4 months Orders: Orders Comprehensive [place]. Panel Fast 4 Months E78.00 - Pure hypercholesterolemia, unspecified Lipid Panel 4 Months E78.00 - Pure hypercholesterolemia, unspecified TSH reflex Free T4 4 Months E78.00 - Pure hypercholesterolemia, unspecified UA CC w/rflx Micro + Cult 4 Months R30.0 - Dysuria Complete Blood Count Auto Diff 4 Months D64.9 - Anemia, unspecified Medications: Changed From lisinopril 20 mg PO DAILY 90 days 90 tabs 1RF I10 - Essential (primary) hypertension To lisinopril 30 mg PO DAILY 90 days 90 tabs 1RF I10 - Essential (primary) hypertension Refilled blood pressure monitor (Blood Pressure Kit) As directed 1 ea 0RF I10 - Essential (primary) hypertension, R03.0 - Elevated blood-pressure reading, without diagnosis of hypertension Coding Level of Care Code Est Pt Level 3 (14018) Diagnoses Benign essential hypertension I10 Pure hypercholesterolemia E78.00 Vitamin D deficiency E55.9 Obesity (BMI 30-39.9) E66.9
== END 2024-04-02 17:16 | disposition home or self-care (01) ==
PROVIDERS: PCP Internal Medicine; Visit Provider Internal Medicine
DX: I10 Essential (primary) hypertension (principal); E78.00 Pure hypercholesterolemia, unspecified; E66.9 Obesity, unspecified; Z68.32 Body mass index [BMI] 32.0-32.9, adult; E55.9 Vitamin D deficiency, unspecified

== ENCOUNTER → 2024-04-02 16:37 | Outpatient (BNVA) | payer OTHER, SELFPAY | PROVIDERS: PCP Internal Medicine; Visit Provider Internal Medicine | DX: I10 Essential (primary) hypertension (principal); E78.00 Pure hypercholesterolemia, unspecified; E55.9 Vitamin D deficiency, unspecified; E66.9 Obesity, unspecified; Z79.899 Other long term (current) drug therapy | CPT/HCPCS: 96127 ==

== ENCOUNTER 2024-04-07 10:21 | Outpatient (REF) | payer OTHER, SELFPAY ==
[2024-04-07 10:37] LABS: MANUAL DIFF FLAG NO
[2024-04-07 11:20] LABS: Appearance Urine Clear; Color Urine Yellow; Glucose Urine UA Negative (Negative); Leukocyte Esterase Urine Negative (Negative); Nitrite Urine Negative (Negative); Specific Gravity - Urine 1.015 (1.005-1.025); Urine Blood Negative (Negative); Urine Ketones Negative (Negative); Urine Protein Negative (Neg-Trace)
[2024-04-07 11:33] LABS: Basophils Percent Auto 0.5 % (0-2); Eosinophils Absolute Auto 0.1 X10*3/uL (0.0-0.4); Eosinophils Percent Auto 1.7 % (0-4); Imm Gran Abs Auto 0.02 X10*3/uL (0.00-0.03); Imm Gran Pct Auto 0.3 % (0.0-0.4); Lymphocytes Absolute Auto 1.5 X10*3/uL (1.2-4.9); Lymphocytes Percent Auto 23.4 % (20-40); Mean Corpuscular HGB Conc 34.9 g/dl (31.0-36.0); Mean Corpuscular Hemoglobin 30.7 pg (27.0-33.0); Mean Corpuscular Volume 88.1 fL (80.0-98.0); Mean Platelet Volume 11.3 fL (9.4-12.4); Monocytes Absolute Auto 0.5 X10*3/uL (0.1-1.2); Monocytes Percent Auto 7.3 % (2-11); Neutrophils Absolute Auto 4.3 x10*3/uL (2.0-8.3); Neutrophils Percent Auto 66.8 % (45-73); Platelet Count 200 X10*3/uL (160-400); Red Blood Count 4.88 X10*6/uL (4.60-5.80); Red Cell Distribution Width 12.5 % (11.0-16.0); White Blood Count 6.5 X10*3/uL (4.8-10.8)
[2024-04-07 12:04] LABS: Alanine Aminotransferase 19 U/L (0-40); Albumin Level 4.5 g/dL (3.5-5.0); Alkaline Phosphatase 69 U/L (39-117); Anion Gap 11 (12-20); Aspartate Amino Transferase 22 U/L (5-37); Bilirubin Total 1.5 mg/dL (0.0-1.0); Blood Urea Nitrogen 8 mg/dL (9-16); Calcium 9.6 mg/dL (8.4-10.2); Carbon Dioxide 28 mmol/L (22-29); Chloride 107 mmol/L (96-108); Cholesterol 124 mg/dL (<200); Estimated Glomerular Filt Rate > 60; Glucose Fasting 90 mg/dL (60-99); HDL Cholesterol 40 mg/dL (>40); LDL Cholesterol Calculated 74 mg/dL (<100); Potassium 3.8 mmol/L (3.3-5.1); Sodium 142 mmol/L (135-145); Total Protein 7.4 g/dL (6.5-8.0); Triglycerides 51 mg/dL (<150)
[2024-04-07 12:21] LABS: TSH reflex Free T4 1.29 uIU/mL (0.32-4.0); Vitamin D 25-OH Total 20.8 ng/mL (>30)
== END 2024-04-07 10:22 | disposition home or self-care (01) ==
LOC: HO.LAB 10:21
PROVIDERS: PCP Internal Medicine; Visit Provider Internal Medicine
DX: D64.9 Anemia, unspecified (principal); E55.9 Vitamin D deficiency, unspecified; E78.00 Pure hypercholesterolemia, unspecified; R30.0 Dysuria
CPT/HCPCS: 36415; 80053; 80061; 81003; 82306; 84443; 85025

== ENCOUNTER 2024-04-20 11:08 | Outpatient (AMB) | payer OTHER, SELFPAY ==
[2024-04-20 11:19] VITALS: BP 152/90; PULSE 67; O2SAT 99; BMI 31.8
--- NOTE | 2024-04-20 11:19 | A.OFFPC_ITS ---
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 Accompanied by: Self / Same As Patient Allergies No Known Allergies [No Known Allergies*] Allergy (Verified 04/20/24 11:53) Medication List - Last Reconciled 04/20/24 by Jann Triplett MD atorvastatin 10 mg PO BEDTIME blood pressure monitor (Blood Pressure Kit) As directed cholecalciferol (vitamin D3) 50 mcg PO DAILY 90 days lisinopril 30 mg PO DAILY 90 days Tobacco use date assessed: 04/20/24 Dental Screening Dental Screen Date: 04/20/24 Did you have a dental visit in the last 12 months?: Yes Did you have a dental problem in the last 6 months where you did not have access to dental care?: No Was dental information given to patient?: Patient has dentist HPI BP follow up HPI Details Patient comes in today for follow up of his blood pressure States that he went to see his dentist about 3 days ago and his blood pressure was very high at the time - readings were around 170/122 and 174/110 His BP log that he brought in today also shows that his systolic BP was consistently around 150 to 160 mm over the past few weeks His Lisinopril dosage was increased to 30 mg QD a couple of weeks ago on 04/02/2024 but patient states that his blood pressure only improved slightly since He reports experiencing on and off occipital headaches lately; denies any dizziness Denies any chest pains but notes (+) sensation of heaviness at times on the left side of his chest He denies any shortness of breath No nausea/vomiting, no abdominal pain No change in bowel habits noted He had his follow-up labs done a couple of weeks ago - to discuss his results [facility] Medical History Benign essential hypertension Pure hypercholesterolemia Vitamin D deficiency Obesity (BMI 30-39.9) Surgical History No history of previous surgery Family History Mother Diabetes Father High blood pressure Social History Housing: Apartment Alcohol intake: unknown Patient Tobacco Use Status: Never used Tobacco e-Cigarette/Vaping Use: Never Used Second Hand Smoke Exposure: Yes service: No Current occupational status: unemployed Cognitive needs: No Hearing needs: No Vision needs: No Questionnaire PHQ-9 Over the last 2 weeks, how often have you been bothered by any of the following problems? 1. Little interest or pleasure in doing things: not at all 2. Feeling down, depressed, or hopeless: not at all 3. Trouble falling or staying asleep, or sleeping too much: not at all 4. Feeling tired or having little energy: not at all 5. Poor appetite or overeating: not at all 6. Feeling bad about yourself - or that you are a failure or have let yourself or your family down: not at all 7. Trouble concentrating on things, such as reading the newspaper or watching television: not at all 8. Moving or speaking so slowly that other people could have noticed. Or the opposite - being so fidgety or restless that you have been moving around a lot more than usual: not at all 9. Thoughts that you would be better off or of hurting yourself in some way: not at all Total score: 0 Depression Screening Interpretation: Negative Depression Screening Done: Yes 23858 - PHQ-9 Billing: Yes Source: Developed by Drs. Pablo Gomez, Ronda Morales, Wyatt Robledo and colleagues, with an educational christopher from [employer]. Thrive Questionnaire Date Thrive assessed: 04/20/24 I am a: Patient What is your living situation today?: I have a steady place to live Within the past 12 months, did the food you bought not last and you didn't have the money to get more?: Never true Within the past 12 months, did you worry whether your food would run out before you got money to buy more?: Never true Do you have trouble paying for medicines?: No Do you have trouble getting transportation to medical appointments?: No Do you have trouble paying your heating and electricity bill?: No Do you have trouble taking care of your child, family member or friend?: No Do you have trouble with day-to-day activities such as bathing, preparing meals, shopping, managing finances, etc.?: No Are you currently unemployed and looking for a job?: No Are you interested in more education?: No Please select the resources that you would like help with: None Currently or been in a relationship where the following occur: No concerns reported THRIVE Score: 0 AUDIT C Alcohol Use Questionnaire (AUDIT-C) 1. How often do you have a drink containing alcohol?: Monthly or less 2. How many drinks containing alcohol do you have on a typical day when you are drinking?: 1 or 2 3. How often do you have six or more drinks on one occasion?: Never Total Score: 1 Score Reviewed/Action Taken: Yes GENE-7 AMB Questionnaire GENE-7 Date GENE - 7 assessed: 04/20/24 Feeling nervous, anxious, or on edge: 0 = Not at all Not being able to stop or control worryin = Not at all Worrying too much about different things: 0 = Not at all Trouble relaxin = Not at all Being so restless that it is hard to sit still: 0 = Not at all Becoming easily annoyed or irritable: 0 = Not at all Feeling afraid as if something awful might happen: 0 = Not at all Total GENE-7 score (0-4 normal; 5-9 mild; 10-14 moderate; 15-21 severe): 0 Source: Developed by Drs. Pablo Gomez, Ronda Morales, Wyatt Robledo and colleagues, with an educational christopher from [employer]. Review of Systems Const Denies chills, Denies fatigue, Denies fever(s) and Reports headache(s) (on and off, mostly over the occipital area) ENT Denies dysphagia, Denies dizziness, Denies otalgia, Reports headache(s) (on and off, mostly over the occipital area), Denies neck pain, Denies odynophagia and Denies sore throat Card Denies chest pain (but reports heavy sensation on the left chest area at times), Denies palpitations and Denies dyspnea Resp Denies cough and Denies dyspnea GI Denies abdominal pain, Denies constipation, Denies dysphagia, Denies heartburn, Denies diarrhea, Denies nausea, Denies odynophagia and Denies vomiting Denies dysuria, Denies nocturia and Denies urinary frequency Musc Denies back pain and Denies neck pain Skin/Breast Denies rash Neuro Denies dizziness and Reports headache(s) (on and off, mostly over the occipital area) Endo Denies fatigue and Denies palpitations Physical exam (Primary Care) Vital Signs: Last Vital Signs Pulse 67 04/20/24 11:19 BP 152/90 H 04/20/24 11:19 Pulse Ox 99 04/20/24 11:19 Oxygen Delivery Method Room Air 04/20/24 11:19 BMI result Body Mass Index 31.8 Tobacco/Smoking Status: Tobacco use Status Tobacco use date assessed 04/20/24 04/20/24 11:25 Patient Tobacco Use Status Never used Tobacco 04/20/24 11:25 e-Cigarette/Vaping Use Never Used 04/20/24 11:25 PHQ-9: PHQ-9 Score PHQ-9: Total score 0 04/20/24 11:56 Depression Screening Interpretation: Negative Thrive Assessment: Date of Thrive Assessment Date Thrive assessed 04/20/24 04/20/24 11:25 Currently or been in a relationship where the following occur: No concerns reported Const General: no acute distress and alert HENMT Throat: Yes posterior oropharynx normal and Yes tonsils normal (no TP congestion) Neck Neck: Yes no lymphadenopathy and Yes supple Thyroid: Thyroid normal Resp Auscultation: clear to auscultation bilaterally, no rales and no wheezes Cardio Rate: regular rate Rhythm: regular rhythm Heart sounds: no murmurs GI Palpation (GI): Soft to palpation and nontender Auscultation: normal bowel sounds Skin Rashes: no rashes Extrem General: Yes no clubbing, cyanosis or edema Results Reviewed Results Reviewed: Laboratory Tests 04/07/24 04/07/24 10:30 10:34 WBC 6.5 Hgb 15.0 Hct 43.0 Plt Count 200 Sodium 142 Potassium 3.8 Creatinine 0.93 Estimated GFR > 60 Fasting Glucose 90 Calcium 9.6 AST 22 ALT 19 Triglycerides 51 Cholesterol 124 LDL Cholesterol, Calc 74 HDL Cholesterol 40 L 25-OH Vitamin D Total 20.8 L TSH 1.29 Ur Specific [place] 1.015 Urine Protein Negative Urine Glucose (UA) Negative Urine Blood Negative Urine Nitrite Negative Ur Leukocyte Esterase Negative Coding Level of Care Code Est Pt Level 4 (12295) Diagnoses Benign essential hypertension I10 Pure hypercholesterolemia E78.00 Vitamin D deficiency E55.9 Obesity (BMI 30-39.9) E66.9 Assessment & Plan Assessment & Plan (1) Benign essential hypertension: Code(s): I10 - Essential (primary) hypertension Category: Medical Plan: Reinforced low sodium diet - goal is systolic BP of at least 120 to 130 mm or less Continue Lisinopril 30 mg QD Will start him additionally on Amlodipine 5 mg QD Patient is reminded to continue monitoring his blood pressure regularly (2) Pure hypercholesterolemia: Code(s): E78.00 - Pure hypercholesterolemia, unspecified Category: Medical Plan: Results of his labs done a coupe of weeks ago reviewed and discussed with patient Reinforced low cholesterol diet Continue Atorvastatin 10 mg QD Will recheck his fasting lipids and labs again in a few months for follow up (3) Vitamin D deficiency: Code(s): E55.9 - Vitamin D deficiency, unspecified Category: Medical Plan: Continue Vitamin D3 2000 units QD (4) Obesity (BMI 30-39.9): Code(s): E66.9 - Obesity, unspecified Category: Medical Plan: Reinforced diet/exercise as tolerated/lose weight Plan Follow up in 2 months Medications: New amlodipine 5 mg PO DAILY 90 days 90 tabs 1RF
== END 2024-04-20 12:09 | disposition home or self-care (01) ==
PROVIDERS: PCP Internal Medicine; Visit Provider Internal Medicine
DX: I10 Essential (primary) hypertension (principal); E78.00 Pure hypercholesterolemia, unspecified; E66.811 Obesity, class 1; Z68.31 Body mass index [BMI] 31.0-31.9, adult; E55.9 Vitamin D deficiency, unspecified

== ENCOUNTER → 2024-04-20 11:08 | Outpatient (BNVA) | payer OTHER, SELFPAY | PROVIDERS: PCP Internal Medicine; Visit Provider Internal Medicine ==

== ENCOUNTER → 2024-04-26 16:09 | Outpatient (BNVA) | payer OTHER, SELFPAY | PROVIDERS: PCP Internal Medicine ==

== ENCOUNTER → 2024-05-11 15:26 | Outpatient (BNVA) | payer OTHER, SELFPAY | PROVIDERS: PCP Internal Medicine ==

== ENCOUNTER 2024-08-13 16:42 | Outpatient (AMB) | payer OTHER, SELFPAY ==
[2024-08-13 16:56] VITALS: BP 148/92; PULSE 70; TEMP 36.6; O2SAT 97; BMI 32.2
--- NOTE | 2024-08-13 16:58 | A.OFFPC_ITS ---
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 Accompanied by: Self / Same As Patient Allergies No Known Allergies [No Known Allergies*] Allergy (Verified 08/13/24 22:32) Medication List - Last Reconciled 08/14/24 by Jann Triplett MD amlodipine 5 mg PO DAILY 90 days atorvastatin 10 mg PO BEDTIME blood pressure monitor (Blood Pressure Kit) As directed cholecalciferol (vitamin D3) 50 mcg PO DAILY 90 days lisinopril 30 mg PO DAILY 90 days Tobacco use date assessed: 08/13/24 Dental Screening Dental Screen Date: 08/13/24 Did you have a dental visit in the last 12 months?: Yes Did you have a dental problem in the last 6 months where you did not have access to dental care?: No Was dental information given to patient?: Patient has dentist HPI Hypertension HPI Details Patient comes in today for his follow-up visit States that he feels okay He has been tolerating his current blood pressure medications without any problems so - is currently on lisinopril 30 mg daily and amlodipine 5 mg He denies any headaches or dizziness Denies any chest pains, no shortness of breath No nausea/vomiting, no abdominal pain No change in bowel habits noted He was not able to get his follow-up labs done prior to his appointment today [facility] Medical History Benign essential hypertension Pure hypercholesterolemia Vitamin D deficiency Obesity (BMI 30-39.9) Surgical History No history of previous surgery Family History Mother Diabetes Father High blood pressure Social History Housing: Apartment Alcohol intake: unknown Patient Tobacco Use Status: Never used Tobacco e-Cigarette/Vaping Use: Never Used Second Hand Smoke Exposure: Yes service: No Current occupational status: unemployed Cognitive needs: No Hearing needs: No Vision needs: No Questionnaire PHQ-9 Over the last 2 weeks, how often have you been bothered by any of the following problems? 1. Little interest or pleasure in doing things: not at all 2. Feeling down, depressed, or hopeless: not at all 3. Trouble falling or staying asleep, or sleeping too much: not at all 4. Feeling tired or having little energy: not at all 5. Poor appetite or overeating: not at all 6. Feeling bad about yourself - or that you are a failure or have let yourself or your family down: not at all 7. Trouble concentrating on things, such as reading the newspaper or watching television: not at all 8. Moving or speaking so slowly that other people could have noticed. Or the opposite - being so fidgety or restless that you have been moving around a lot more than usual: not at all 9. Thoughts that you would be better off or of hurting yourself in some way: not at all Total score: 0 Depression Screening Interpretation: Negative Depression Screening Done: Yes 54156 - PHQ-9 Billing: Yes Source: Developed by Drs. Pablo Gomez, Ronda Morales, Wyatt Robledo and colleagues, with an educational christopher from [employer]. Thrive Questionnaire Date Thrive assessed: 08/13/24 I am a: Patient What is your living situation today?: I have a steady place to live Within the past 12 months, did the food you bought not last and you didn't have the money to get more?: Never true Within the past 12 months, did you worry whether your food would run out before you got money to buy more?: Never true Do you have trouble paying for medicines?: No Do you have trouble getting transportation to medical appointments?: No Do you have trouble paying your heating and electricity bill?: No Do you have trouble taking care of your child, family member or friend?: No Do you have trouble with day-to-day activities such as bathing, preparing meals, shopping, managing finances, etc.?: No Are you currently unemployed and looking for a job?: No Are you interested in more education?: No Please select the resources that you would like help with: None Currently or been in a relationship where the following occur: No concerns reported THRIVE Score: 0 AUDIT C Alcohol Use Questionnaire (AUDIT-C) 1. How often do you have a drink containing alcohol?: Monthly or less 2. How many drinks containing alcohol do you have on a typical day when you are drinking?: 1 or 2 3. How often do you have six or more drinks on one occasion?: Never Total Score: 1 Score Reviewed/Action Taken: Yes GENE-7 AMB Questionnaire GENE-7 Date GENE - 7 assessed: 08/13/24 Feeling nervous, anxious, or on edge: 0 = Not at all Not being able to stop or control worryin = Not at all Worrying too much about different things: 0 = Not at all Trouble relaxin = Not at all Being so restless that it is hard to sit still: 0 = Not at all Becoming easily annoyed or irritable: 0 = Not at all Feeling afraid as if something awful might happen: 0 = Not at all Total GENE-7 score (0-4 normal; 5-9 mild; 10-14 moderate; 15-21 severe): 0 Source: Developed by Drs. Pablo Gomez, Ronda Morales, Wyatt Robledo and colleagues, with an educational christopher from [employer]. GENE-7 Assessment Billing GENE-7 Assessment Tool: GENE-7 Assessment 70734 Review of Systems Const Denies chills, Denies fatigue, Denies fever(s) and Denies headache(s) ENT Denies dysphagia, Denies dizziness, Denies otalgia, Denies headache(s), Denies neck pain, Denies odynophagia and Denies sore throat Card Denies chest pain, Denies palpitations and Denies dyspnea Resp Denies chest congestion, Denies cough and Denies dyspnea GI Denies abdominal pain, Denies constipation, Denies dysphagia, Denies heartburn, Denies diarrhea, Denies nausea, Denies odynophagia and Denies vomiting Denies dysuria, Denies nocturia and Denies urinary frequency Musc Denies back pain and Denies neck pain Skin/Breast Denies rash Neuro Denies dizziness and Denies headache(s) Endo Denies fatigue and Denies palpitations Physical exam (Primary Care) Vital Signs: Last Vital Signs Temp 97.8 F 08/13/24 16:56 Pulse 70 08/13/24 16:56 BP 136/92 H 08/13/24 17:15 Pulse Ox 97 08/13/24 16:56 Oxygen Delivery Method Room Air 08/13/24 16:56 BMI result Body Mass Index 32.2 Tobacco/Smoking Status: Tobacco use Status Tobacco use date assessed 08/13/24 08/13/24 17:01 Patient Tobacco Use Status Never used Tobacco 08/13/24 17:01 e-Cigarette/Vaping Use Never Used 08/13/24 17:01 PHQ-9: PHQ-9 Score PHQ-9: Total score 0 08/13/24 17:18 Depression Screening Interpretation: Negative Thrive Assessment: Date of Thrive Assessment Date Thrive assessed 08/13/24 08/13/24 17:01 Currently or been in a relationship where the following occur: No concerns reported Const General: no acute distress and alert HENMT Ears: TM's normal bilaterally and EAC's normal Throat: Yes posterior oropharynx normal and Yes tonsils normal (no TP congestion) Neck Neck: Yes supple and No lymphadenopathy Thyroid: Thyroid normal Resp Auscultation: clear to auscultation bilaterally, no rales and no wheezes Cardio Rate: regular rate Rhythm: regular rhythm Heart sounds: no murmurs GI Palpation (GI): Soft to palpation and nontender Auscultation: normal bowel sounds Skin Rashes: no rashes Extrem General: Yes no clubbing, cyanosis or edema Office Procedures Flu Questionnaire Does the patient have a severe egg allergy?: No Immunizations Fluarix Triv [id number] (PF) 45 mcg (15 mcg x 3)/0.5 mL IM syringe Performing Provider: Jann Triplett MD Performing Location: [facility] [place] [facility] Documented (not given) by: KAYLEY Contreras on 08/13/24 17:02 Reason Not Given: Patient Refused Coding Level of Care Code Est Pt Level 3 (98977) Diagnoses Benign essential hypertension I10 Pure hypercholesterolemia E78.00 Vitamin D deficiency E55.9 Obesity (BMI 30-39.9) E66.9 Additional Codes GENE-7 Assessment Billing - GENE-7 Assessment Tool: GENE-7 Assessment 83117 ([id number]) PHQ-9 - 71421 - PHQ-9 Billing: Yes ([id number]) Assessment & Plan Assessment & Plan (1) Benign essential hypertension: Code(s): I10 - Essential (primary) hypertension Category: Medical Plan: Reinforced low sodium diet - goal is systolic BP of at least 120 to 130 mm or less Patient states that his blood pressure has been doing well on his current medications and usually much lower than today's blood pressure reading when he checks his blood pressure at home Continue Lisinopril 30 mg QD and Amlodipine 5 mg QD for now Patient is reminded to continue monitoring his blood pressure regularly (2) Pure hypercholesterolemia: Code(s): E78.00 - Pure hypercholesterolemia, unspecified Category: Medical Plan: Patient was not able to get his blood tests done prior to his appointment today - states that he will try to go get his labs done MAE Reinforced low cholesterol diet Continue Atorvastatin 10 mg QD Will recheck his fasting lipids and labs again in 3 months for follow up (3) Vitamin D deficiency: Code(s): E55.9 - Vitamin D deficiency, unspecified Category: Medical Plan: Continue Vitamin D3 2000 units QD (4) Obesity (BMI 30-39.9): Code(s): E66.9 - Obesity, unspecified Category: Medical Plan: Reinforced diet/exercise as tolerated/lose weight Plan Follow up in 3 months Orders: Orders Influenza [id number] Immunization 08/13/24 Z23 - Encounter for immunization Comprehensive [place]. Panel Fast 3 Months E78.00 - Pure hypercholesterolemia, unspecified Lipid Panel 3 Months E78.00 - Pure hypercholesterolemia, unspecified
[2024-08-13 17:15] VITALS: BP 136/92
== END 2024-08-13 17:18 | disposition home or self-care (01) ==
PROVIDERS: PCP Internal Medicine; Visit Provider Internal Medicine
DX: Z23 Encounter for immunization (principal)

== ENCOUNTER → 2024-08-13 16:42 | Outpatient (BNVA) | payer OTHER, SELFPAY | PROVIDERS: PCP Internal Medicine; Visit Provider Internal Medicine | DX: I10 Essential (primary) hypertension (principal); E78.00 Pure hypercholesterolemia, unspecified; E55.9 Vitamin D deficiency, unspecified; E66.9 Obesity, unspecified; Z68.32 Body mass index [BMI] 32.0-32.9, adult; Z79.899 Other long term (current) drug therapy; Z28.21 Immunization not carried out because of patient refusal | CPT/HCPCS: 90471; 96127 ==

== ENCOUNTER 2024-09-03 15:02 | Outpatient (REF) | payer OTHER, SELFPAY ==
[2024-09-03 15:26] LABS: MANUAL DIFF FLAG NO
[2024-09-03 16:19] LABS: Basophils Percent Auto 0.4 % (0-2); Eosinophils Absolute Auto 0.1 X10*3/uL (0.0-0.4); Eosinophils Percent Auto 1.6 % (0-4); Hematocrit 41.1 % (42.0-52.0); Hemoglobin 14.7 g/dl (14.0-18.0); Imm Gran Abs Auto 0.03 X10*3/uL (0.00-0.03); Imm Gran Pct Auto 0.4 % (0.0-0.4); Lymphocytes Absolute Auto 1.9 X10*3/uL (1.2-4.9); Lymphocytes Percent Auto 27.5 % (20-40); Mean Corpuscular HGB Conc 35.8 g/dl (31.0-36.0); Mean Corpuscular Hemoglobin 30.9 pg (27.0-33.0); Mean Corpuscular Volume 86.3 fL (80.0-98.0); Mean Platelet Volume 10.8 fL (9.4-12.4); Monocytes Absolute Auto 0.6 X10*3/uL (0.1-1.2); Neutrophils Absolute Auto 4.4 x10*3/uL (2.0-8.3); Neutrophils Percent Auto 62.1 % (45-73); Platelet Count 215 X10*3/uL (160-400); Red Blood Count 4.76 X10*6/uL (4.60-5.80); Red Cell Distribution Width 13.2 % (11.0-16.0)
[2024-09-03 16:24] LABS: Appearance Urine Clear; Color Urine Yellow; Glucose Urine UA Negative (Negative); Leukocyte Esterase Urine Negative (Negative); Nitrite Urine Negative (Negative); Urine Blood Negative (Negative); Urine Ketones Negative (Negative); Urine Protein Negative (Neg-Trace)
[2024-09-03 17:25] LABS: Alanine Aminotransferase 31 U/L (0-40); Albumin Level 4.3 g/dL (3.5-5.0); Anion Gap 10 (12-20); Aspartate Amino Transferase 35 U/L (5-37); Blood Urea Nitrogen 10 mg/dL (9-16); Calcium 9.3 mg/dL (8.4-10.2); Carbon Dioxide 28 mmol/L (22-29); Chloride 107 mmol/L (96-108); Cholesterol 166 mg/dL (<200); Estimated Glomerular Filt Rate > 60; Glucose Fasting 84 mg/dL (60-99); HDL Cholesterol 49 mg/dL (>40); LDL Cholesterol Calculated 104 mg/dL (<100); Potassium 4.2 mmol/L (3.3-5.1); Sodium 141 mmol/L (135-145); Total Protein 7.8 g/dL (6.5-8.0); Triglycerides 65 mg/dL (<150)
[2024-09-03 17:27] LABS: TSH reflex Free T4 2.46 uIU/mL (0.32-4.0)
[2024-09-03 17:58] LABS: Alkaline Phosphatase 77 U/L (39-117)
== END 2024-09-03 15:03 | disposition home or self-care (01) ==
LOC: HO.LAB 15:02
PROVIDERS: PCP Internal Medicine; Visit Provider Internal Medicine
DX: D64.9 Anemia, unspecified (principal)
CPT/HCPCS: 36415; 80053; 80061; 81003; 84443; 85025